=== PATIENT | male | born 1950 | race African-American/Black ===

== ENCOUNTER 2018-12-01 09:11 | Inpatient (IN) | payer MEDICARE, MEDICAID ==
[2018-12-01] MEDS ORDERED: levETIRAcetam 500 MG/100 ML PREMIX BAG ONE (09:23)
[2018-12-01] MEDS ORDERED: Lorazepam 2 MG/ML VIAL ONE (09:39)
[2018-12-01 10:06] LABS: #Basophils 0.1 thou/uL (0.0-0.2); #Eosinphils 0.2 thou/uL (0.0-0.7); #Lymphocytes 1.3 thou/uL (1.20-3.40); #Monocytes 0.3 thou/uL (0.11-0.59); #Neutrophils 3.9 thou/uL (1.40-6.50); %Basophils 0.9 % (0.0-1.0); %Eosinophils 3.5 % (0.0-10.0); %Monocytes 5.6 % (0.0-10.0); %Neutrophils 66.9 % (42.0-75.0); Hemoglobin 12.6 g/dL (14.0-18.0); Mean Corpuscular HGB CONC 31.8 g/dL (32.0-36.0); Mean Corpuscular Hemoglobin 28.4 pg (27.0-31.0); Mean Corpuscular Volume 89.1 fL (78.0-98.0); Mean Platelet Volume 7.4 fL (7.4-10.4); Platelet Count 169 thou/uL (130-400); Red Blood Cell (RBC) Count 4.42 mill/uL (4.70-6.10); White Blood Cell (WBC) Count 5.8 thou/uL (4.8-10.8)
[2018-12-01 10:12] LABS: INR-International Normal Ratio 1.1; PTT 28.7 SEC (22.9-36.1); Prothrombin Time 14.2 SEC (12.0-14.7)
[2018-12-01] MEDS ORDERED: Gadobenate Dimeglumine 529 MG/1 ML (20ML VIAL) ONE (10:16)
--- NOTE | 2018-12-01 10:20 | CT ---
CT BRAIN WITHOUT CONTRAST: HISTORY: Seizure. COMPARISON: 10/13/2018 FINDINGS: Changes of chronic small vessel ischemic disease in the periventricular white matter are again seen. The ventricular size is normal and the basilar cisterns are patent. No evidence of acute infarct, hem orrhage, midline shift or abnormal extraaxial fluid collections is noted. The bony calvarium is intac t. The visualized paranasal sinuses and mastoid air cells are well aerated. IMPRESSION: No CT evidence of acute intracranial process. POS: [facility]
--- NOTE | 2018-12-01 10:23 | RAD ---
PORTABLE CHEST: Date: 12/01/18 HISTORY: Seizures. COMPARISON: 10/13/18 study. FINDINGS: Heart size within normal limits. Mediastinal structures are unremarkable. There is some increased int erstitial change in the bases, probably on the basis of atelectasis. IMPRESSION: 1. Bibasilar atelectatic appearing lung change. 2. There is what appears to be some emphysematous lung change involving the right upper lobe. POS: [facility]
[2018-12-01 10:37] LABS: ALT (SGPT) 15 U/L (8-55); AST (SGOT) 21 U/L (5-34); Albumin 3.6 g/dL (3.4-4.8); Alkaline Phosphatase 55 U/L (40-110); Anion Gap 20 mmol/L (10-20); BUN (Urea Nitrogen) 10 mg/dL (8.4-25.7); Bilirubin, Total 0.3 mg/dL (0.2-1.2); CK (CPK) 126 U/L (30-200); Calc. Creatinine Clearance 0 mL/min (70-130); Calcium 8.3 mg/dL (7.8-10.44); Carbon Dioxide 16 mmol/L (23-31); Chloride 105 mmol/L (98-107); Estimated GFR-MDRD 69; Globulin 3.5 g/dL (2.4-3.5); Glucose 100 mg/dL (80-115); Magnesium 1.8 mg/dL (1.6-2.6); Potassium 3.5 mmol/L (3.5-5.1); Protein, Total 7.1 g/dL (5.8-8.1); Sodium 137 mmol/L (136-145)
[2018-12-01 10:38] LABS: Acetaminophen Less than 6.0 mcg/mL (10.0-30.0); Alcohol Less than 10 mg/dL (Less than 10); Salicylate Less than 8.0 mg/dL (15.0-30.0)
[2018-12-01 11:55] LABS: Bacteria/HPF None Seen HPF (None Seen); Bilirubin Negative (Negative); Blood, Urine Negative (Negative); Clarity Clear (Clear); Glucose, Urine (Dipstick) Normal (Negative); Leukocyte Negative Leu/uL (Negative); Nitrite Negative (Negative); Protein, Urine (Dipstick) 50 mg/dL (Neg-Trace); RBC/HPF 0-3 HPF (0-3); Squamous Epithelial 0-3 HPF (0-3); Urobilinogen Normal mg/dL (Less than 2); WBC/HPF 0-3 HPF (0-3)
[2018-12-01 11:58] LABS: Medtox Reader # READER 4
[2018-12-01 11:59] LABS: Amphetamine Not Detected (NotDetected); Barbiturates Screen Not Detected (NotDetected); Benzodiazepine Screen Detected (NotDetected); Cocaine Metabolite Screen Not Detected (NotDetected); Medtox Control Line Valid? VALID (VALID); Methadone Not Detected (NotDetected); Methamphetamine Not Detected (NotDetected); Opiate Screen Not Detected (NotDetected); Oxycodone Screen Not Detected (NotDetected); Phencyclidine (PCP) Not Detected (NotDetected); THC/Cannabinoid Screen Not Detected (NotDetected); Tricyclic Screen Not Detected (NotDetected)
[2018-12-01 14:25] LABS: Lactic Acid 3.2 mmol/L (0.5-2.2)
[2018-12-01] MEDS ORDERED: Acetaminophen 325 MG TAB PO PRN ×2 (14:51→15:42)
[2018-12-01] MEDS ORDERED: Ondansetron PF 4 MG/2 ML Vial IVP PRN ×2 (14:51→15:42)
[2018-12-01] MEDS ORDERED: Ondansetron ODT 4 MG TAB SL PRN (14:51)
[2018-12-01 15:23] VITALS: BMI 23.8
[2018-12-01] MEDS ORDERED: Ondansetron ODT 4 MG TAB PO PRN (15:42)
[2018-12-01] MEDS ORDERED: Acetaminophen 650 MG Suppository PR PRN (15:42)
[2018-12-01] MEDS ORDERED: Lorazepam 2 MG/ML VIAL SLOW IVP PRN (15:53)
[2018-12-01] MEDS: Sodium Chloride 0.9% 1,000 ML IV SCH (16:22)
[2018-12-01] MEDS ORDERED: hydrALAZINE 20 MG/ML VIAL SLOW IVP PRN (16:23)
--- NOTE | 2018-12-01 17:24 | HP ---
TIME OF ASSESSMENT: 1500 hours. PRIMARY CARE PHYSICIAN: Fer Vega. REASON FOR ADMISSION: Breakthrough seizures secondary to noncompliance. HISTORY OF PRESENT ILLNESS: Mr. Herndon is a 68-year-old gentleman with a known history of seizures, who has been on Keppra 1000 mg twice daily at baseline after undergoing increase in the dose following admission with recurrent multiple seizures late September 2018. He was seen by Dr. Bey at that time and was previously on 500 mg twice a day. More recently, according to the ED reports, the patient has been noncompliant with medications due to financial issues. The patient is very somnolent, therefore difficult to obtain much information, but patient states he has been compliant until the last few days. Unable to provide any more information besides that. He denies any complaints at this time. Per ED records, he was reported to have been given 2 mg of Ativan by EMS due to seizure. He was witnessed to have 2 seizures while en route to the hospital and had another seizure in the ER. He had another 2 mg of Ativan in the emergency department. He underwent a CT of the head, which showed no acute intracranial abnormalities. He also underwent a chest x-ray showing bibasilar atelectatic lung changes with changes that seem to be associated with emphysema involving the right upper lung. Urine drug screen test was done, which was unremarkable except for benzodiazepines. Laboratory studies were notable for an elevated lactic acid of 11.9 and a repeat was done at noon showing it had improved to 3.2. Full blood count was normal. Hemoglobin was 12.6. Electrolytes unremarkable. Creatinine 1.27, GFR 69 compared to previous level of 84. BUN 10. LFTs unremarkable and CK normal at 126. Urinalysis was done showing no evidence of UTI. REVIEW OF SYSTEMS: Unable to obtain due to the patient being somnolent from medications given. PAST MEDICAL HISTORY: Seizures. PAST SURGICAL HISTORY: Unable to obtain due to the patient being altered. SOCIAL HISTORY: The patient states he lives with his daughter. FAMILY HISTORY: Per patient, no family history of epilepsy. ALLERGIES: NO KNOWN DRUG ALLERGIES. CURRENT MEDICATIONS: Unable to verify as the patient is currently altered. PHYSICAL EXAMINATION: GENERAL: The patient appears somnolent, well developed, and in no acute distress. VITAL SIGNS: Temperature 100.5, pulse 77, respirations 16, O2 saturation 96% on room air, blood pressure 189/112. HEENT: Normocephalic, atraumatic. Pupils are equal, round, and reactive to light. Sclerae without icterus. Extraocular muscles intact. The patient without any nystagmus. Opens his eyes on command only, otherwise keeps his eyes closed. Oropharynx is clear. NECK: Supple. LUNGS: Clear to auscultation. No rales or rhonchi. CARDIAC: Regular rate and rhythm. ABDOMEN: Soft, nontender, nondistended. Normoactive bowel sounds present. EXTREMITIES: No lower leg swelling or edema. NEUROLOGIC: The patient is somnolent, but easily woken, able to follow commands. Normal hand tentering machine feeder strength bilaterally. Able to straight leg raise bilaterally. Alert and oriented to person and year. The patient thought he was in his daughter's apartment. SKIN: Without rash or jaundice. INVESTIGATIONS: As mentioned above in HPI. IMPRESSION AND PLAN: Mr. Herndon is a 68-year-old gentleman, who has a known history of seizures. He reports he has been noncompliant with medications as of recently due to financial issues. The patient endorses being noncompliant in the last couple of days. He was admitted in September 2018 with seizures, at which time, his Keppra was increased from 500 mg to 1000 mg twice daily. He has been given a 1000 mg of Keppra in the emergency department and we will continue this twice daily. Consultation has been placed in Neurology and an MRI of the brain has been requested. He remains somnolent due to Ativan given previously. The patient on seizure precautions and we will continue neuro checks. Urine drug screen unremarkable except for benzos which he was given en route to the hospital. The patient without any complaints at present. We will continue to monitor closely. Urinalysis done showing no evidence of urinary tract infection. He did have an elevated temperature, however, upon rechecking it was normal at 98.1. Chest x-ray unremarkable. Currently, no obvious signs of any underlying infection and lactic acid improved to 3.2 from 11.9. We will give hydralazine p.r.n. for elevated blood pressure. The patient appears to have a history of thyroid disorder. We will attempt to verify home medications and we will check a TSH level. At this time, unable to obtain information regarding code status or surrogate decision maker. Person to notify is his daughter, Ghazala Caba. The patient's case was discussed with Dr. Schmidt, who agrees with plan of care as described above. Job ID: [id number]
[2018-12-01] MEDS: levETIRAcetam In NaCl (Iso-Os) 1,000 MG in Premix Bag 1 BAG IVPB SCH (20:36)
[2018-12-01] MEDS: Famotidine/PF 20 mg/2ml Vial SLOW IVP SCH (20:48)
[2018-12-02 04:33] LABS: #Eosinphils 0.2 thou/uL (0.0-0.7); #Lymphocytes 1.6 thou/uL (1.20-3.40); #Monocytes 0.5 thou/uL (0.11-0.59); #Neutrophils 3.8 thou/uL (1.40-6.50); %Basophils 0.4 % (0.0-1.0); %Eosinophils 3.2 % (0.0-10.0); %Lymphocytes 26.2 % (21.0-51.0); %Monocytes 7.5 % (0.0-10.0); %Neutrophils 62.7 % (42.0-75.0); Hemoglobin 12.9 g/dL (14.0-18.0); Mean Corpuscular HGB CONC 31.3 g/dL (32.0-36.0); Mean Corpuscular Hemoglobin 27.9 pg (27.0-31.0); Mean Platelet Volume 8.2 fL (7.4-10.4); Platelet Count 170 thou/uL (130-400); RBC Distribution Width 12.2 % (11.5-14.5); Red Blood Cell (RBC) Count 4.62 mill/uL (4.70-6.10)
[2018-12-02 04:53] LABS: Anion Gap 13 mmol/L (10-20); BUN (Urea Nitrogen) 9 mg/dL (8.4-25.7); Calc. Creatinine Clearance 84 mL/min (70-130); Calcium 8.6 mg/dL (7.8-10.44); Carbon Dioxide 21 mmol/L (23-31); Chloride 106 mmol/L (98-107); Estimated GFR-MDRD Greater than 90; Glucose 79 mg/dL (80-115); Potassium 3.5 mmol/L (3.5-5.1); Sodium 136 mmol/L (136-145)
[2018-12-02] MEDS: Sodium Chloride 0.9% 1,000 ML IV SCH (06:15)
--- NOTE | 2018-12-02 08:30 | MRI ---
MRI Brain W WO Con: 12/01/2018 3:54 PM CLINICAL HISTORY: Seizure disorder. COMPARISON: Head CT earlier same day FINDINGS: Extra axial spaces: Normal in size and morphology for the patient's age. Acute infarction: None. Ventricular system: Normal in size and morphology for the patient's age. Basal cisterns: Normal. Cerebral parenchyma: Microvascular ischemic changes. Midline shift: None. Cerebellum: Normal. Brainstem: Normal. Paranasal sinuses:Clear Intraaxial Enhancement: None IMPRESSION: No acute intracranial abnormality. Chronic microvascular ischemic disease of the cerebral white matter.
[2018-12-02] MEDS ORDERED: FLU VACC TS2019-20(65YR UP)/PF 180 MCG/0.5 ML SYRINGE IM ONE (09:00)
[2018-12-02] MEDS: Famotidine/PF 20 mg/2ml Vial SLOW IVP SCH ×2 (10:06→20:38)
[2018-12-02] MEDS: levETIRAcetam In NaCl (Iso-Os) 1,000 MG in Premix Bag 1 BAG IVPB SCH ×2 (10:14→20:38)
[2018-12-02] MEDS ORDERED: Amlodipine 5 MG TAB PO SCH (12:00)
[2018-12-02] MEDS ORDERED: Lisinopril 5 MG TAB PO SCH (12:00)
--- NOTE | 2018-12-02 15:04 | PDOC.HOSPP ---
- Subjective Subjective: Seen and examined. Patient answering questions appropriately. Patient tells me he is hungry. Patient had bedside swallow evaluation by nursing staff and did not have any difficulties, advanced diet. Patient does state that he has missed doses of his antiepileptic drugs secondary to cost, consider changing to a lower -cost alternative such as Depakote per neurologist. - Objective Vital Signs & Weight: Vital Signs (12 hours) Temp Pulse Resp BP BP Pulse Ox 12/02/18 12:19 66 179/107 H 12/02/18 12:18 66 179/107 H 12/02/18 12:00 98.0 F 66 16 188/108 H 98 12/02/18 07:47 97.8 F 60 14 168/100 H 100 12/02/18 04:00 98.1 F 64 16 150/85 H 99 Weight Weight 180 lb 11.2 oz I&O: 12/01/18 12/02/18 12/03/18 06:59 06:59 06:59 Intake Total 909 395 Output Total 500 240 Balance 409 155 Result Diagrams: 12/02/18 04:06 12/02/18 04:06 Radiology Reviewed by me: Yes (MRI brain) Hospitalist ROS - Review of Systems All other systems reviewed; all pertinent +/- noted in HPI/Subj - Medication Medications: Active Medications Generic Name Dose Route Start Last Admin Trade Name Freq PRN Reason Stop Dose Admin Acetaminophen 650 mg 12/01/18 15:42 12/01/18 16:22 Tylenol [place] 650 mg Q4H PRN Administration Headache/Fever/Mild Pain (1-3) Famotidine 20 mg 12/01/18 21:00 12/02/18 10:06 Pepcid SLOW IVP 20 mg Q12HR CAMRON Administration Hydralazine HCl 10 mg 12/01/18 16:23 12/01/18 16:34 Apresoline SLOW IVP 10 mg Q4H PRN Administration SBP Greater Than 180 Levetiracetam 1,000 mg/ Device 100 mls @ 200 mls/hr 12/01/18 21:00 12/02/18 10:14 IVPB 100 mls BID CAMRON Administration - Exam General Appearance: NAD, awake alert Eye: anicteric sclera ENT: normocephalic atraumatic, moist mucosa Neck: supple, symmetric, no lymphadenopathy Heart: no murmur, no gallops, no rubs Respiratory: CTAB, no wheezes, no rales, no ronchi, normal chest expansion Gastrointestinal: soft, non-tender, non-distended, no guarding, no rigidity Extremities: no edema Skin: no lesions, no rashes Neurological: cranial nerve grossly intact, no focal deficits Musculoskeletal: generalized weakness Psychiatric: normal affect, A&O x 3 Hosp A/P (1) Medical non-compliance Code(s): Z91.19 - PATIENT'S NONCOMPLIANCE W OTH MEDICAL TREATMENT AND REGIMEN Status: Acute (2) Status epilepticus Code(s): G40.901 - EPILEPSY, UNSP, NOT INTRACTABLE, WITH STATUS EPILEPTICUS Status: Acute (3) Hypothyroidism Code(s): E03.9 - HYPOTHYROIDISM, UNSPECIFIED Status: Chronic (4) CRISTIAN (acute kidney injury) Code(s): N17.9 - ACUTE KIDNEY FAILURE, UNSPECIFIED Status: Resolved - Plan Plan: medical unit with telemetry/stroke unit neurology consultation, recommendations appreciated MRI brain negative for acute intracranial pathology, chronic white matter changes patient admits medical noncompliance with antiepileptic drug secondary to cost, consider changing to a low-cost alternative such as Depakote per neurology seizure precautions Ativan 2 mg PRN Seizure continue other home medications as able metabolic workup with renal insufficiency improved on IV fluids
[2018-12-02] MEDS ORDERED: Prevnar 13-Val Conj/PF 0.5 ML SYRINGE IM ONE (15:45)
--- NOTE | 2018-12-02 21:18 | PRG ---
DATE OF SERVICE: 12/02/2018 IMPRESSION: Mr. Herndon is readmitted after an apparent seizure. He was hospitalized here in September for the same issue. His Keppra was increased to 1000 twice a day. He has been noncompliant with the treatment. He came back in with a Keppra level of zero. He was given a 1000 mg loading dose. He has not had any further seizures since admission. The patient refused to accept the idea that he has seizures, chances are he will continue to be noncompliant. It seems like there is little we can do except consider adult protective services. Job ID: [id number]
[2018-12-03] MEDS: Levothyroxine Sodium 25 MCG TAB PO SCH (06:48)
[2018-12-03] MEDS: levETIRAcetam In NaCl (Iso-Os) 1,000 MG in Premix Bag 1 BAG IVPB SCH ×2 (09:07→21:13)
[2018-12-03] MEDS: Amlodipine 5 MG TAB PO SCH (09:08)
[2018-12-03] MEDS: Lisinopril 5 MG TAB PO SCH (09:08)
[2018-12-03] MEDS: Famotidine/PF 20 mg/2ml Vial SLOW IVP SCH ×2 (09:08→21:13)
--- NOTE | 2018-12-03 16:50 | PDOC.HOSPP ---
- Subjective Subjective: Seen and examined. I asked the patient today if he was taking his seizure pills prior to admission, patient now tells me that he doesn't need seizure pills and he doesn't believe he has this problem. I told the patient that he does have seizures and this is the second hospitalization in the past two months for seizure, he seems confused that this is his second hospitalization for this and does not recall last hospitalization. Neurology recommending consulting Adult Protective Services as the patient is a danger to himself and may not be safe to go home at this time. - Objective Vital Signs & Weight: Vital Signs (12 hours) Temp Pulse Pulse Pulse Resp BP BP 12/03/18 15:57 98.8 F 71 20 12/03/18 13:43 12/03/18 13:24 71 59 L 151/91 H 12/03/18 12:00 97.3 F L 61 16 12/03/18 09:08 65 151/93 H 12/03/18 08:00 97.4 F L 65 18 BP BP Pulse Ox 12/03/18 15:57 145/88 H 98 12/03/18 13:43 162/94 H 12/03/18 13:24 162/94 H 12/03/18 12:00 180/103 H 98 12/03/18 09:08 12/03/18 08:00 151/93 H 98 Weight Weight 180 lb 11.2 oz I&O: 12/02/18 12/03/18 12/04/18 06:59 06:59 06:59 Intake Total 909 395 Output Total 500 240 Balance 409 155 Result Diagrams: 12/02/18 04:06 12/02/18 04:06 Radiology Reviewed by me: Yes (CXR) Hospitalist ROS - Review of Systems All other systems reviewed; all pertinent +/- noted in HPI/Subj - Medication Medications: Active Medications Generic Name Dose Route Start Last Admin Trade Name Freq PRN Reason Stop Dose Admin Acetaminophen 650 mg 12/01/18 15:42 12/01/18 16:22 Tylenol [place] 650 mg Q4H PRN Administration Headache/Fever/Mild Pain (1-3) Amlodipine Besylate 2.5 mg 12/03/18 09:00 12/03/18 09:08 Norvasc PO 2.5 mg DAILY CAMRON Administration Famotidine 20 mg 12/01/18 21:00 12/03/18 09:08 Pepcid SLOW IVP 20 mg Q12HR CAMRON Administration Hydralazine HCl 10 mg 12/01/18 16:23 12/01/18 16:34 Apresoline SLOW IVP 10 mg Q4H PRN Administration SBP Greater Than 180 Levetiracetam 1,000 mg/ Device 100 mls @ 200 mls/hr 12/01/18 21:00 12/03/18 09:07 IVPB 100 mls BID CAMRON Administration Levothyroxine Sodium 25 mcg 12/03/18 06:00 12/03/18 06:48 Synthroid PO 25 mcg 0600 CAMRON Administration Lisinopril 5 mg 12/03/18 09:00 12/03/18 09:08 Zestril PO 5 mg DAILY CAMRON Administration - Exam General Appearance: NAD, awake alert Eye: anicteric sclera ENT: normocephalic atraumatic, moist mucosa Neck: supple, symmetric, no lymphadenopathy Heart: RRR, no murmur, no gallops Respiratory: CTAB, no wheezes, no rales, no ronchi Gastrointestinal: soft, non-tender, non-distended, normal bowel sounds, no guarding, no rigidity Extremities: no edema Skin: no lesions, no rashes Neurological: cranial nerve grossly intact, no focal deficits Musculoskeletal: normal tone, no muscle wasting Psychiatric: oriented to person, oriented to place, flat affect Hosp A/P (1) Medical non-compliance Code(s): Z91.19 - PATIENT'S NONCOMPLIANCE W OTH MEDICAL TREATMENT AND REGIMEN Status: Acute (2) Status epilepticus Code(s): G40.901 - EPILEPSY, UNSP, NOT INTRACTABLE, WITH STATUS EPILEPTICUS Status: Acute (3) Hypothyroidism Code(s): E03.9 - HYPOTHYROIDISM, UNSPECIFIED Status: Chronic (4) CRISTIAN (acute kidney injury) Code(s): N17.9 - ACUTE KIDNEY FAILURE, UNSPECIFIED Status: Resolved - Plan Plan: medical unit with telemetry/stroke unit neurology consultation, recommendations appreciated Consult to Adult Protective Services, patient a danger to self with continual denial of seizure disorder and recurrent admission for seizures secondary to medical non compliance Again this AM patient tells me he doesnt need seizure pills, in denial about having seizure disorder. Patient in denial about medical problems and refuses to listen to myself or neurology on the serious nature of his condition Query if patient can take care of himself alone MRI brain negative for acute intracranial pathology, chronic white matter changes IV Keppra Seizure precautions Ativan 2 mg PRN Seizure continue other home medications as able metabolic workup with renal insufficiency improved on IV fluids
[2018-12-04] MEDS: Levothyroxine Sodium 25 MCG TAB PO SCH (06:28)
[2018-12-04] MEDS: Lisinopril 5 MG TAB PO SCH (09:47)
[2018-12-04] MEDS: Amlodipine 5 MG TAB PO SCH (09:48)
[2018-12-04] MEDS: Famotidine/PF 20 mg/2ml Vial SLOW IVP SCH ×2 (09:48→21:30)
[2018-12-04] MEDS: levETIRAcetam In NaCl (Iso-Os) 1,000 MG in Premix Bag 1 BAG IVPB SCH ×2 (09:49→21:29)
--- NOTE | 2018-12-04 16:03 | PDOC.HOSPP ---
- Subjective Subjective: Seen and examined. Patient in good spirits. Eating and drinking well. No seizures overnight. Continues to improve on maximal medical therapy. Patient still has poor understanding into his clinical condition and occasionally states that he does not believe he has seizure disorder or need seizure medications. - Objective Vital Signs & Weight: Vital Signs (12 hours) Temp Pulse Pulse Resp BP BP BP 12/04/18 15:50 98.6 F 65 16 12/04/18 11:45 98.1 F 61 15 12/04/18 11:30 56 L 174/96 H 147/88 H 12/04/18 09:48 59 L 138/84 12/04/18 09:47 59 L 138/84 12/04/18 09:40 12/04/18 07:54 97.7 F 67 20 BP Pulse Ox 12/04/18 15:50 153/96 H 97 12/04/18 11:45 147/88 H 99 12/04/18 11:30 12/04/18 09:48 12/04/18 09:47 12/04/18 09:40 99 12/04/18 07:54 138/84 99 Weight Weight 180 lb 11.2 oz I&O: 12/03/18 12/04/18 12/05/18 06:59 06:59 06:59 Intake Total 395 480 Output Total 240 Balance 155 480 Result Diagrams: 12/02/18 04:06 12/02/18 04:06 Hospitalist ROS - Review of Systems All other systems reviewed; all pertinent +/- noted in HPI/Subj - Medication Medications: Active Medications Generic Name Dose Route Start Last Admin Trade Name Freq PRN Reason Stop Dose Admin Acetaminophen 650 mg 12/01/18 15:42 12/01/18 16:22 Tylenol [place] 650 mg Q4H PRN Administration Headache/Fever/Mild Pain (1-3) Amlodipine Besylate 2.5 mg 12/03/18 09:00 12/04/18 09:48 Norvasc PO 2.5 mg DAILY CAMRON Administration Famotidine 20 mg 12/01/18 21:00 12/04/18 09:48 Pepcid SLOW IVP 20 mg Q12HR CAMRON Administration Hydralazine HCl 10 mg 12/01/18 16:23 12/01/18 16:34 Apresoline SLOW IVP 10 mg Q4H PRN Administration SBP Greater Than 180 Levetiracetam 1,000 mg/ Device 100 mls @ 200 mls/hr 12/01/18 21:00 12/04/18 09:49 IVPB 100 mls BID CAMRON Administration Levothyroxine Sodium 25 mcg 12/03/18 06:00 12/04/18 06:28 Synthroid PO 25 mcg 0600 CAMRON Administration Lisinopril 5 mg 12/03/18 09:00 12/04/18 09:47 Zestril PO 5 mg DAILY CAMRON Administration - Exam General Appearance: NAD, awake alert Eye: anicteric sclera ENT: normocephalic atraumatic, moist mucosa Neck: supple, symmetric, no lymphadenopathy Heart: RRR, no murmur, normal peripheral pulses Respiratory: CTAB, no wheezes, no ronchi Gastrointestinal: soft, non-tender, normal bowel sounds, no guarding, no rigidity Extremities: no edema Skin: no lesions, no rashes Neurological: cranial nerve grossly intact, no focal deficits Musculoskeletal: no muscle wasting Psychiatric: normal affect, A&O x 3 Hosp A/P (1) Medical non-compliance Code(s): Z91.19 - PATIENT'S NONCOMPLIANCE W OTH MEDICAL TREATMENT AND REGIMEN Status: Acute (2) Status epilepticus Code(s): G40.901 - EPILEPSY, UNSP, NOT INTRACTABLE, WITH STATUS EPILEPTICUS Status: Acute (3) Hypothyroidism Code(s): E03.9 - HYPOTHYROIDISM, UNSPECIFIED Status: Chronic (4) CRISTIAN (acute kidney injury) Code(s): N17.9 - ACUTE KIDNEY FAILURE, UNSPECIFIED Status: Resolved - Plan Plan: medical unit with telemetry/stroke unit neurology consultation, recommendations appreciated Consult to Adult Protective Services, patient a danger to self with continual denial of seizure disorder and recurrent admission for seizures secondary to medical non compliance Again this AM patient tells me he doesnt need seizure pills, in denial about having seizure disorder. Patient in denial about medical problems and refuses to listen to myself or neurology on the serious nature of his condition Query if patient can take care of himself alone Patient drinks several beers per day Smokes cigarettes MRI brain negative for acute intracranial pathology, chronic white matter changes IV Keppra Seizure precautions Ativan 2 mg PRN Seizure continue other home medications as able metabolic workup with renal insufficiency improved on IV fluids
--- NOTE | 2018-12-05 03:05 | EKG ---
Test Reason : Blood Pressure : / mmHG Vent. Rate : 083 BPM Atrial Rate : 083 BPM P-R Int : 174 ms QRS Dur : 090 ms QT Int : 352 ms P-R-T Axes : 077 036 053 degrees QTc Int : 413 ms Normal sinus rhythm Possible Left atrial enlargement Nonspecific T wave abnormality Abnormal ECG Confirmed by RUSSELL HESTER D.O. ([id number]), sound editor CADY RIVERA ([id number]) on 12/05/2018 3:05:13 AM Referred By: Confirmed By:RUSSELL HESTER D.O.
[2018-12-05] MEDS: Levothyroxine Sodium 25 MCG TAB PO SCH (05:27)
[2018-12-05] MEDS ORDERED: levETIRAcetam 100 mg/ml Oral Solution PO SCH (09:00)
[2018-12-05] MEDS: levETIRAcetam 500 mg/5 ml Oral Solution PO SCH ×2 (09:44→21:35)
[2018-12-05] MEDS: Famotidine/PF 20 mg/2ml Vial SLOW IVP SCH ×2 (09:44→21:35)
[2018-12-05] MEDS: Amlodipine 5 MG TAB PO SCH (09:45)
[2018-12-05] MEDS: Lisinopril 5 MG TAB PO SCH (09:45)
--- NOTE | 2018-12-05 16:20 | PDOC.HOSPP ---
- Subjective Subjective: Seen and examined. Clinically improving. Answering questions appropriately. No seizures overnight. Changed Keppra from intravenous to oral liquid. Patient's family believes that he is having trouble with pills consistently. Case discussed with daughter over the phone, all questions answered in detail. - Objective Vital Signs & Weight: Vital Signs (12 hours) Temp Pulse Resp BP BP BP Pulse Ox 12/05/18 15:29 97.8 F 61 20 169/107 H 100 12/05/18 11:15 97.5 F L 60 20 144/92 H 99 12/05/18 09:45 59 L 140/94 H 12/05/18 09:40 97 12/05/18 07:10 97.6 F 61 16 123/96 H 97 Weight Weight 180 lb 11.2 oz I&O: 12/04/18 12/05/18 12/06/18 06:59 06:59 06:59 Intake Total 600 480 Balance 600 480 Result Diagrams: 12/02/18 04:06 12/02/18 04:06 Hospitalist ROS - Review of Systems All other systems reviewed; all pertinent +/- noted in HPI/Subj - Medication Medications: Active Medications Generic Name Dose Route Start Last Admin Trade Name Freq PRN Reason Stop Dose Admin Acetaminophen 650 mg 12/01/18 15:42 12/01/18 16:22 Tylenol [place] 650 mg Q4H PRN Administration Headache/Fever/Mild Pain (1-3) Amlodipine Besylate 2.5 mg 12/03/18 09:00 12/05/18 09:45 Norvasc PO 2.5 mg DAILY CAMRON Administration Famotidine 20 mg 12/01/18 21:00 12/05/18 09:44 Pepcid SLOW IVP 20 mg Q12HR CAMRON Administration Hydralazine HCl 10 mg 12/01/18 16:23 12/01/18 16:34 Apresoline SLOW IVP 10 mg Q4H PRN Administration SBP Greater Than 180 Levetiracetam 1,000 mg 12/05/18 09:00 12/05/18 09:44 Keppra Oral Solution PO 1,000 mg BID CAMRON Administration Levothyroxine Sodium 25 mcg 12/03/18 06:00 12/05/18 05:27 Synthroid PO 25 mcg 0600 CAMRON Administration Lisinopril 5 mg 12/03/18 09:00 12/05/18 09:45 Zestril PO 5 mg DAILY CAMRON Administration Sodium Chloride 10 ml 12/01/18 15:42 12/04/18 21:30 Flush - Normal Saline IVF 10 ml Q12H PRN Administration Saline Flush - Exam General Appearance: NAD, awake alert Eye: anicteric sclera ENT: normocephalic atraumatic, moist mucosa Neck: supple, symmetric, no lymphadenopathy Heart: RRR, no murmur, no gallops Respiratory: CTAB, no wheezes, no rales, no ronchi Gastrointestinal: soft, non-tender, no guarding, no rigidity Extremities: no edema Skin: no lesions, no rashes Neurological: cranial nerve grossly intact, no focal deficits Musculoskeletal: no muscle wasting Psychiatric: normal affect, A&O x 3 Hosp A/P (1) Medical non-compliance Code(s): Z91.19 - PATIENT'S NONCOMPLIANCE W OTH MEDICAL TREATMENT AND REGIMEN Status: Acute (2) Status epilepticus Code(s): G40.901 - EPILEPSY, UNSP, NOT INTRACTABLE, WITH STATUS EPILEPTICUS Status: Acute (3) Hypothyroidism Code(s): E03.9 - HYPOTHYROIDISM, UNSPECIFIED Status: Chronic (4) CRISTIAN (acute kidney injury) Code(s): N17.9 - ACUTE KIDNEY FAILURE, UNSPECIFIED Status: Resolved - Plan Plan: medical unit with telemetry/stroke unit neurology consultation, recommendations appreciated Speech therapy consultation, recommendations appreciated Modified barium sallow - reported "trouble swallowing keppra pill" Consult to Adult Protective Services, patient a danger to self with continual denial of seizure disorder and recurrent admission for seizures secondary to medical non compliance Again this AM patient tells me he doesnt need seizure pills, in denial about having seizure disorder. Patient in denial about medical problems and refuses to listen to myself or neurology on the serious nature of his condition Query if patient can take care of himself alone Patient drinks several beers per day Smokes cigarettes MRI brain negative for acute intracranial pathology, chronic white matter changes IV Keppra Seizure precautions Ativan 2 mg PRN Seizure continue other home medications as able metabolic workup with renal insufficiency improved on IV fluids
[2018-12-06] MEDS: Levothyroxine Sodium 25 MCG TAB PO SCH (08:06)
[2018-12-06] MEDS: levETIRAcetam 500 mg/5 ml Oral Solution PO SCH ×2 (09:24→21:09)
[2018-12-06] MEDS: Amlodipine 5 MG TAB PO SCH (09:25)
[2018-12-06] MEDS: Lisinopril 5 MG TAB PO SCH (09:26)
[2018-12-06] MEDS: Famotidine/PF 20 mg/2ml Vial SLOW IVP SCH ×2 (09:27→21:07)
--- NOTE | 2018-12-06 13:45 | PDOC.HOSPP ---
- Subjective Subjective: Seen and examined. Daughter at bedside, all questions answered in detail. Many questions were had about patient's ability to swallow and I recommended modified barium swallow. This will tell us if there is an anatomical reason for patients inability to swallow pills. Patient states that occasionally they do feel like they get caught in his throat. - Objective Vital Signs & Weight: Vital Signs (12 hours) Temp Pulse Resp BP BP BP Pulse Ox 12/06/18 11:11 97.6 F 66 16 149/89 H 98 12/06/18 09:26 63 143/94 H 12/06/18 09:25 63 143/94 H 12/06/18 07:42 97.9 F 63 20 143/94 H 98 12/06/18 03:47 97.4 F L 60 16 147/88 H 100 Weight Weight 180 lb 11.2 oz I&O: 12/05/18 12/06/18 12/07/18 06:59 06:59 06:59 Intake Total 600 720 Balance 600 720 Result Diagrams: 12/02/18 04:06 12/02/18 04:06 Hospitalist ROS - Review of Systems All other systems reviewed; all pertinent +/- noted in HPI/Subj - Medication Medications: Active Medications Generic Name Dose Route Start Last Admin Trade Name Freq PRN Reason Stop Dose Admin Acetaminophen 650 mg 12/01/18 15:42 12/01/18 16:22 Tylenol OH 650 mg Q4H PRN Administration Headache/Fever/Mild Pain (1-3) Amlodipine Besylate 2.5 mg 12/03/18 09:00 12/06/18 09:25 Norvasc PO 2.5 mg DAILY CAMRON Administration Famotidine 20 mg 12/01/18 21:00 12/06/18 09:27 Pepcid SLOW IVP 20 mg Q12HR CAMRON Administration Hydralazine HCl 10 mg 12/01/18 16:23 12/01/18 16:34 Apresoline SLOW IVP 10 mg Q4H PRN Administration SBP Greater Than 180 Levetiracetam 1,000 mg 12/05/18 09:00 12/06/18 09:24 Keppra Oral Solution PO 1,000 mg BID CAMRON Administration Levothyroxine Sodium 25 mcg 12/03/18 06:00 12/06/18 08:06 Synthroid PO 25 mcg 0600 CAMRON Administration Lisinopril 5 mg 10/11/19 09:00 12/06/18 09:26 Zestril PO 5 mg DAILY CAMRON Administration Sodium Chloride 10 ml 12/01/18 15:42 12/05/18 21:36 Flush - Normal Saline IVF 10 ml Q12H PRN Administration Saline Flush - Exam General Appearance: NAD, awake alert Eye: anicteric sclera ENT: normocephalic atraumatic, moist mucosa Neck: supple, symmetric, no lymphadenopathy Heart: RRR, no murmur, no gallops, no rubs Respiratory: CTAB, no wheezes, no rales, no ronchi, normal chest expansion Gastrointestinal: soft, non-tender, no guarding, no rigidity Extremities: no edema Skin: no lesions, no rashes Neurological: cranial nerve grossly intact, no focal deficits Musculoskeletal: no muscle wasting Psychiatric: normal affect, A&O x 3 Hosp A/P (1) Medical non-compliance Code(s): Z91.19 - PATIENT'S NONCOMPLIANCE W OTH MEDICAL TREATMENT AND REGIMEN Status: Acute (2) Status epilepticus Code(s): G40.901 - EPILEPSY, UNSP, NOT INTRACTABLE, WITH STATUS EPILEPTICUS Status: Acute (3) Hypothyroidism Code(s): E03.9 - HYPOTHYROIDISM, UNSPECIFIED Status: Chronic (4) CRISTIAN (acute kidney injury) Code(s): N17.9 - ACUTE KIDNEY FAILURE, UNSPECIFIED Status: Resolved - Plan Plan: medical unit with telemetry/stroke unit neurology consultation, recommendations appreciated Speech therapy consultation, recommendations appreciated Modified barium sallow - reported "trouble swallowing keppra pill" And sometimes it "gets stuck" Consult to Adult Protective Services, patient a danger to self with continual denial of seizure disorder and recurrent admission for seizures secondary to medical non compliance patient tells me he doesnt need seizure pills, in denial about having seizure disorder. Patient in denial about medical problems and refuses to listen to myself or neurology on the serious nature of his condition Query if patient can take care of himself alone Patient drinks several beers per day Smokes cigarettes MRI brain negative for acute intracranial pathology, chronic white matter changes IV Keppra Seizure precautions Ativan 2 mg PRN Seizure continue other home medications as able metabolic workup with renal insufficiency improved on IV fluids
--- NOTE | 2018-12-06 17:07 | RAD ---
MODIFIED BARIUM SWALLOW WITH SPEECH THERAPIST: History: Unspecified dysphagia, feeding difficulty. FINDINGS: Patient was evaluated in the upright and lateral position. Fluoroscopy time: 0.8 minutes Dose: 0.43 mGy*cm^2 No ariel penetration or aspiration. Patient swallowed the barium tablet without difficulty. Prominent anterior disc osteophyte complex, particularly at C5-6 resulting in some posterior indention of the cervical esophagus at this level. IMPRESSION: Findings as above. Please see speech therapy report for additional findings and recommendations. POS: SABAS
[2018-12-07] MEDS: Levothyroxine Sodium 25 MCG TAB PO SCH (06:44)
[2018-12-07] MEDS: Amlodipine 5 MG TAB PO SCH (09:04)
[2018-12-07] MEDS: levETIRAcetam 500 mg/5 ml Oral Solution PO SCH (09:04)
[2018-12-07] MEDS: Lisinopril 5 MG TAB PO SCH (09:04)
[2018-12-07] MEDS: Famotidine/PF 20 mg/2ml Vial SLOW IVP SCH (09:05)
[2018-12-07 15:38] VITALS: BP 156/96; TEMP 98.4
--- NOTE | 2018-12-08 03:16 | DIS ---
DATE OF ADMISSION: 12/01/2018 DATE OF DISCHARGE: 12/07/2018 REASON FOR HOSPITALIZATION: Seizure. SIGNIFICANT FINDINGS: The patient was found to be noncompliant with his seizure regimen. PROCEDURES PERFORMED AND TREATMENTS RENDERED: The patient was seen and evaluated by Neurology, please see full consultation notes and progress notes for details. The patient had all appropriate imaging including an MRI of the brain-please see full report for details-there is no acute intracranial process and the patient does have chronic white matter changes. The patient was restarted on his antiepileptic drug and no further seizures were noted over his hospitalization. CONDITION ON DISCHARGE: Stable. SPECIFIC INSTRUCTIONS FOR THE PATIENT/FAMILY: 1. The patient is recommended to take oral Keppra and if he is unable to take oral Keppra, he is to return to acute care hospital immediately. 2. The patient is recommended to continue to follow up with primary care physician in the next 5 to 7 days for further plan of care. 3. The patient is recommended to follow up with Neurology in the next 1 to 2 weeks. 4. The patient is recommended to abstain from alcohol as beer has been known to cause seizures. The patient is recommended to avoid illicit drugs and tobacco use. DISCHARGE MEDICATIONS: 1. Keppra 1000 mg liquid solution b.i.d. 2. Lisinopril 5 mg one tablet p.o. daily. 3. Amlodipine 5 mg one tablet p.o. daily. 4. Synthroid 25 mcg one tablet p.o. daily. HOSPITAL COURSE: Mr. Herndon is a very pleasant 68-year-old gentleman, who presented to [facility] on 12/01/2018 with seizure. The patient was admitted to the Neurology floor and was seen by the neurologist, please see full consultation notes and full radiographic imaging for all details. The patient had a CT scan of the brain that did not demonstrate any acute abnormality and the patient had a subsequent MRI of the brain-please see full report for details-there is no acute intracranial process and there are chronic white matter changes. Neurology stating that there has been several hospitalizations in the past several months for seizures and this is secondary to medical noncompliance. For this, Neurology and myself recommended consultation of Adult Protective Services and this was facilitated by Case Management. The patient has previously been established with Adult Protective Services in [place] and they do have case filed on him. The patient past several months, homeless on the streets of [place], and just recently his daughter has started to take over his care. The patient did describe to me episodes where he thought that he did not need antiepileptic drug and he did not want to take seizure medicines and he states "God's will is God's will." Over long discussions with myself and the neurologist, the patient was told explicitly several times that he does have a seizure condition and this is controlled when he takes his Keppra. The patient then states that maybe he has trouble swallowing pills and his daughter describes episodes of him the patient also stated that sometimes he thought that a pill would get stuck in his throat. I recommended a modified barium swallow-please see full report for details. There were no overt aspiration or overt abnormality seen on the modified barium swallow. The patient does have a posterior anterior disk osteophyte complex that is particularly at the C5-C6 level, but is resulting in some posterior indentation of the cervical esophagus at that level-please see full report for details. When I discussed this matter personally with the speech therapist, she did not state that this was any impedance to his swallowing ability. The patient was recommended a diet appropriately by Speech Therapy and he can even swallow pills if able. The patient's daughter did request that I send a liquid Keppra and I did send a liquid Keppra to see if in a liquid formula, he is more inclined to take this medication. The patient recommended safe for discharge by Neurology with close followup in the outpatient setting in the next 1 to 2 weeks. The patient is recommended to take oral Keppra or return to acute care hospital immediately. The patient recommended to abstain from any alcohol use and he is known to drink 4 to 5 beers in a day. I explicitly informed the patient and the patient's daughter that this can cause seizures and they will stop this completely. I have recommended that he stop any illicit drugs, which he has known to do in the past. I recommended that he stop smoking tobacco and they are resistant to this. The patient is recommended to follow up with primary care physician in the next 5 to 7 days for further care on all the patient's future matters. The patient is recommended to follow up with Neurology in the next 1 to 2 weeks. The patient is recommended to return to acute care hospital immediately if signs or symptoms return, worsen, or any other new symptoms occur. Greater than 35 minutes spent coordinating care and discharge process for this patient. Job ID: [id number]
== END 2018-12-07 15:47 | disposition home health service (06) | DRG 101 ==
LOC: ERS 09:11 → 2SE 14:44
PROVIDERS: ADMIT Family Medicine; ATTEND Family Medicine
DX: G40.901 Epilepsy, unspecified, not intractable, with status epilepticus (principal); N17.9 Acute kidney failure, unspecified; I10 Essential (primary) hypertension; E03.9 Hypothyroidism, unspecified; Z91.14 Patient's other noncompliance with medication regimen; Z59.0 Homelessness; F17.210 Nicotine dependence, cigarettes, uncomplicated
CPT/HCPCS: 36415; 70450; 70553; 71045; 74230; 80048; 80053; 80177; 80306; 80307; 81003; 81015; 82550; 83605; 83735; 84443; 84484; 85025; 85610; 85730; 90471; 90662; 90670; 93005; 96361; 96365; 96375; A9577; G0008; G0009; J0360; J1953; J2060; S0028

== ENCOUNTER 2019-01-25 06:22 | Outpatient (CLI) | payer MEDICARE, MEDICAID ==
[2019-01-26 14:12] LABS: #Eosinphils 0.3 thou/uL (0.0-0.7); #Lymphocytes 1.4 thou/uL (1.20-3.40); #Monocytes 0.3 thou/uL (0.11-0.59); %Basophils 0.6 % (0.0-1.0); %Eosinophils 5.2 % (0.0-10.0); %Lymphocytes 28.4 % (21.0-51.0); %Monocytes 6.3 % (0.0-10.0); %Neutrophils 59.5 % (42.0-75.0); Hemoglobin 12.8 g/dL (14.0-18.0); Mean Corpuscular Hemoglobin 27.8 pg (27.0-31.0); Mean Corpuscular Volume 89.5 fL (78.0-98.0); Mean Platelet Volume 7.4 fL (7.4-10.4); Platelet Count 203 thou/uL (130-400); Red Blood Cell (RBC) Count 4.59 mill/uL (4.70-6.10); White Blood Cell (WBC) Count 5.1 thou/uL (4.8-10.8)
[2019-01-26 14:33] LABS: Anion Gap 9 mmol/L (10-20); BUN (Urea Nitrogen) 9 mg/dL (8.4-25.7); Calc. Creatinine Clearance 0 mL/min (70-130); Calcium 9.1 mg/dL (7.8-10.44); Carbon Dioxide 28 mmol/L (23-31); Chloride 104 mmol/L (98-107); Estimated GFR-MDRD 61; Glucose 91 mg/dL (80-115); Potassium 3.4 mmol/L (3.5-5.1); Sodium 138 mmol/L (136-145)
--- NOTE | 2019-01-27 21:33 | EKG ---
Test Reason : Blood Pressure : / mmHG Vent. Rate : 083 BPM Atrial Rate : 083 BPM P-R Int : 176 ms QRS Dur : 092 ms QT Int : 360 ms P-R-T Axes : 078 060 042 degrees QTc Int : 423 ms Normal sinus rhythm Normal ECG When compared with ECG of 01-DEC-2018 10:22, T wave inversion no longer evident in Anterior leads Confirmed by Luan ECHOLS ([id number]) on 01/27/2019 9:33:00 PM Referred By: NAOMI Confirmed By:Luan ECHOLS
== END 2019-01-25 06:23 | disposition home or self-care (01) ==
LOC: LABBT 06:22
PROVIDERS: ATTEND Surgery
DX: Z01.818 Encounter for other preprocedural examination (principal); K40.90 Unilateral inguinal hernia, without obstruction or gangrene, not specified as recurrent
CPT/HCPCS: 80048; 85025; 93005; 93010

== ENCOUNTER 2019-01-28 09:31 | Day surgery (SDC) | payer MEDICARE, MEDICAID ==
[2019-01-26 13:14] VITALS: BMI 22.7
[2019-01-28] MEDS ORDERED: Dexamethasone 20 MG/5 ML VIAL ONE (10:59)
[2019-01-28] MEDS ORDERED: Ketorolac Tromethamine 30 MG/ML VIAL ONE (10:59)
[2019-01-28] MEDS ORDERED: ePHEDrine/0.9% NaCl/PF SYRINGE 50 mg/10 ml ONE (10:59)
[2019-01-28] MEDS ORDERED: Ondansetron PF 4 MG/2 ML Vial ONE (10:59)
[2019-01-28] MEDS ORDERED: PROPOFOL 200 MG/20 ML VIAL ONE (10:59)
[2019-01-28] MEDS ORDERED: Lidocaine 1% PF 5 ML VIAL ONE (10:59)
[2019-01-28] MEDS ORDERED: Bupivacaine 0.25% HCL 30 ML VIAL ONE ×2 (11:12→14:43)
[2019-01-28] MEDS ORDERED: Fentanyl 100 MCG/2 ML VIAL ONE (11:15)
[2019-01-28] MEDS ORDERED: Levofloxacin 500 mg/D5W 100 ml Premix Bag ONE (11:28)
[2019-01-28] MEDS ORDERED: Clindamycin/D5W 900 mg/50 ml Premix Bag ONE ×2 (11:28→11:39)
--- NOTE | 2019-02-02 22:53 | PDOC.OP ---
Operative Note - Operative Note Operative Note: DATE OF SERVICE: 01/28/2019 PREOPERATIVE DIAGNOSIS: Left inguinal hernia. POSTOPERATIVE DIAGNOSIS: Indirect left inguinal hernia. PROCEDURE: Repair of left inguinal hernia with mesh. HISTORY: 68-year-old man with a large symptomatic inguinal hernia who desires operative repair. DESCRIPTION OF PROCEDURE: After informed consent was obtained and appropriate preoperative antibiotics were administered, the patient was taken to the operating room, placed in the supine position and general endotracheal anesthesia was administered. The inguinal area was prepped and draped in the standard sterile fashion and local anesthesia was infused to the skin and subcutaneous tissues overlying the inguinal canal. An oblique skin incision was made in the direction of the skin crease. Dissection was carried down to the external oblique aponeurosis which was carefully incised in the direction of its fibers through the enlarged external ring. The aponeurosis was mobilized off the underlying structures. The ilioinguinal nerve was clearly identified. This was coursing directly over the hernia sac and was tethered to it, and was divided as it would have required extensive mobilization and traction to preserve. The inguinal cord was mobilized at the level of the pubic tubercle. The cremasteric muscles were divided and the cord contents and floor of the canal were carefully examined. A large direct hernia was identified. The inguinal contents were carefully examined to ensure that no indirect hernia sac was present. A small cord lipoma was identified and this was resected and discarded. However no hernia sac protruding through the internal ring was present. An extra-large Perfix plug was obtained and then placed into the direct defect. This was tacked down to the internal oblique in a couple of locations. The patch was then secured to the pubic tubercle inferiorly, to the shelving edge of the inguinal ligament laterally, and secured at intervals to the internal oblique medially. A keyhole slit was created and placed around the inguinal cord contents and secured, and the ends secured to each other. The operative site was irrigated and hemostasis verified. Local anesthesia was infused into the muscles of the internal oblique medially. An On-Q pain pump was placed into the inguinal canal, exiting laterally and superiorly. This was secured to the skin with skin glue. The external oblique aponeurosis was then closed with 2-0 Vicryl suture, taking care not to pull up any of the underlying cord contents or On-Q tubing into the closure, and additional local anesthesia infused into the inguinal canal. The remainder of the local was infused into the subcutaneous tissues circumferentially and to the skin. Tera's fascia was reapproximated with 3-0 Monocryl sutures and the skin was closed with 4-0 subcuticular Monocryl sutures. Dermabond dressings were placed and the patient was extubated and taken to the recovery room in good condition. Estimated blood loss was minimal. There were no complications. SPECIMENS: None
== END 2019-01-28 16:05 | disposition home or self-care (01) ==
LOC: SDC 09:31
PROVIDERS: ATTEND Surgery
PROC: 0YU60JZ Supplement Left Inguinal Region with Synthetic Substitute, Open Approach (ICD-10-PCS; principal; 2019-01-28)
DX: K40.90 Unilateral inguinal hernia, without obstruction or gangrene, not specified as recurrent (principal); D17.6 Benign lipomatous neoplasm of spermatic cord; I10 Essential (primary) hypertension; J44.9 Chronic obstructive pulmonary disease, unspecified; G40.909 Epilepsy, unspecified, not intractable, without status epilepticus; E03.9 Hypothyroidism, unspecified; F17.200 Nicotine dependence, unspecified, uncomplicated; Z79.899 Other long term (current) drug therapy; Z88.0 Allergy status to penicillin
CPT/HCPCS: 49505; A4306; C1781; J0131; J0690; J1100; J1885; J1956; J2001; J2405; J2704; J3010; J3490; S0020

== ENCOUNTER 2019-06-20 21:41 | Observation (INO) | payer MEDICARE, MEDICAID ==
[2019-06-20] MEDS ORDERED: Lorazepam 2 MG/ML VIAL ONE ×2 (21:55→22:09)
[2019-06-20] MEDS ORDERED: Ondansetron PF 4 MG/2 ML Vial ONE (21:55)
[2019-06-20 22:03] LABS: #Basophils 0.1 thou/uL (0.0-0.2); #Eosinphils 0.3 thou/uL (0.0-0.7); #Monocytes 0.6 thou/uL (0.11-0.59); #Neutrophils 2.7 thou/uL (1.40-6.50); %Basophils 1.3 % (0.0-1.0); %Eosinophils 5.6 % (0.0-10.0); %Lymphocytes 34.6 % (21.0-51.0); %Monocytes 10.7 % (0.0-10.0); %Neutrophils 47.8 % (42.0-75.0); Hemoglobin 13.9 g/dL (14.0-18.0); Mean Corpuscular HGB CONC 31.2 g/dL (32.0-36.0); Mean Corpuscular Hemoglobin 28.1 pg (27.0-31.0); Mean Platelet Volume 7.6 fL (7.4-10.4); Platelet Count 224 thou/uL (130-400); RBC Distribution Width 12.7 % (11.5-14.5); Red Blood Cell (RBC) Count 4.95 mill/uL (4.70-6.10); White Blood Cell (WBC) Count 5.7 thou/uL (4.8-10.8)
[2019-06-20 22:22] LABS: Bacteria/HPF None Seen HPF (None Seen); Bilirubin Negative (Negative); Blood, Urine Negative (Negative); Clarity Clear (Clear); Glucose, Urine (Dipstick) Normal (Negative); Leukocyte Negative Leu/uL (Negative); Nitrite Negative (Negative); Protein, Urine (Dipstick) 30 mg/dL (Neg-Trace); RBC/HPF 0-3 HPF (0-3); Squamous Epithelial None Seen HPF (0-3); Urobilinogen Normal mg/dL (Less than 2); WBC/HPF 0-3 HPF (0-3)
[2019-06-20 22:24] LABS: ALT (SGPT) 70 U/L (8-55); AST (SGOT) 124 U/L (5-34); Albumin 4.3 g/dL (3.4-4.8); Alkaline Phosphatase 87 U/L (40-110); Anion Gap 17 mmol/L (10-20); BUN (Urea Nitrogen) 8 mg/dL (8.4-25.7); Bilirubin, Total 0.4 mg/dL (0.2-1.2); Calc. Creatinine Clearance 0 mL/min (70-130); Calcium 9.6 mg/dL (7.8-10.44); Carbon Dioxide 23 mmol/L (23-31); Chloride 103 mmol/L (98-107); Estimated GFR-MDRD 70; Globulin 4.7 g/dL (2.4-3.5); Glucose 122 mg/dL (80-115); Potassium 3.7 mmol/L (3.5-5.1); Sodium 139 mmol/L (136-145)
--- NOTE | 2019-06-21 00:14 | HP ---
PRIMARY CARE PHYSICIAN: [facility]. REASON FOR ADMISSION: Seizure and postictal confusion. HISTORY OF PRESENT ILLNESS: 68-year-old male, who lives at home with his daughter and the patient was brought to ER by her because he suddenly became altered at home and subsequently, he stopped answering. As per the patient's daughter, he had seizure-like activity at home and subsequently, the patient was in postictal phase. In triage, the patient was not following any commands and the patient was not talking. In the emergency room, the patient was in postictal phase as well as he had another 2 seizures in the emergency room, which required 2 doses of lorazepam. The patient was also given IV fluids. After seizure, he remained in postictal phase. In the emergency room, CT brain was negative. When I saw this patient at that time, the patient was waking up and he pulled out his IV line and he was able to stand up by himself and he was able to use restroom and subsequently, he only required little assistance to go back to his [facility] bed. Routine blood test showed lactic acidosis and abnormal LFTs. The patient is being admitted overnight for observation for recurrent seizure and postictal phase. REVIEW OF SYSTEMS: All review of systems tried to review with the patient, but not reliable due to his level of alertness. PAST MEDICAL HISTORY: Seizure disorder, hypertension, hypothyroidism. PAST SURGICAL HISTORY: Hernia repair. PAST PSYCHIATRIC HISTORY: Reviewed and negative. SOCIAL HISTORY: The patient drinks about 5 beers on everyday basis. He also smokes cigarettes about half pack per day. He denies any other illicit drug abuse. FAMILY HISTORY: No strong family history of premature coronary artery disease, stroke, or cancer. No family history of epilepsy. ALLERGIES: NO KNOWN DRUG ALLERGIES. CURRENT HOME MEDICATIONS: The patient's family member did not bring any medication, but based on our report, he was on the following medications; 1. Keppra 1000 mg twice daily. 2. Levothyroxine 25 mcg p.o. daily. 3. Amlodipine 5 mg p.o. daily. 4. Lisinopril 5 mg p.o. daily. EMERGENCY ROOM COURSE: The patient was given 2 doses of lorazepam, IV fluids. PHYSICAL EXAMINATION: VITAL SIGNS: On arrival, blood pressure 166/96, pulse 80, respiratory rate 16, temperature 98.2, saturation 96% on room air. Weight 65.3 kg. GENERAL: The patient is currently alert, arousable, but confused. No obvious acute distress. HEENT: Head is normocephalic and atraumatic. Eyes; pupils round, reactive to light. Extraocular muscle intact. No nystagmus. ENT, oropharynx within normal limits. Moist mucous membranes. No tongue bite. NECK: Supple. No JVD. No meningeal signs of irritation. LUNGS: Clear to auscultation without any rhonchi or rales. No wheeze. No rhonchi. No rales. NECK: Supple. No JVD. No meningeal signs of irritation. CARDIAC: S1 and S2 regular. No murmur. No gallop. No rub. ABDOMEN: Soft, bowel sounds present, nontender, nondistended. No organomegaly. No mass. No peritoneal sign. EXTREMITIES: No edema. Good distal pulsation. NEUROLOGIC: Grossly nonfocal examination. The patient moves all 4 limbs, but detailed neurological examination not possible because of poor cognitive status at this point. SIGNIFICANT LABS: EKG is showing normal sinus rhythm without any acute ischemic changes. CT brain, based on my review, no acute intracranial process. CBC; WBC 5.7, hemoglobin 13.9, platelets 224. BMP; sodium 139, potassium 3.7, chloride 103, carbon dioxide 23, BUN 8, creatinine 1.25, glucose 122, calcium 9.6. Lactic acid 6.5. LFTs; AST 124, ALT 70, alkaline phosphatase 87, albumin 4.3, troponin 0.016. Urinalysis unremarkable. ASSESSMENT AND PLAN: 1. Recurrent seizure. The patient is given Ativan and his seizure has been resolved. We will continue with Keppra 1000 mg p.o. b.i.d. Current seizure episode probably may be suspected for alcohol withdrawal versus underlying his epilepsy. Underlying medication noncompliance is main culprit for his recurrent seizure. We will check Keppra level tomorrow morning. 2. Lactic acidosis likely due to seizure. We will continue with 5% dextrose with NS and we will repeat lactic acid level tomorrow. 3. Abnormal liver function tests. The patient has AST more than ALT, likely related with his alcohol abuse. We will continue with folic acid, vitamin B12, and multivitamin tonight. 4. Hypertension. We will continue with amlodipine 5 mg p.o. daily, lisinopril 5 mg p.o. daily. 5. Hypothyroidism. Continue Synthroid 25 mcg p.o. daily. 6. Deep venous thrombosis prophylaxis. SCD boots. No Lovenox because we are expecting discharge in 24 hours. 7. GI prophylaxis. Pepcid 20 mg p.o. b.i.d. 8. Alcohol abuse. We will continue folic acid, vitamin B12, and thiamine therapy. 9. Tobacco abuse disorder. Smoking cessation counseling will be given. We will offer nicotine patch if needed. DISPOSITION PLAN: Based on clinical course, likely within 24 hours. Plan of care discussed with the patient in detail. Job ID: [id number]
[2019-06-21] MEDS ORDERED: Sodium Chloride 0.9% 1,000 ML IV SCH (00:36)
[2019-06-21] MEDS ORDERED: Ondansetron ODT 4 MG TAB SL PRN (00:36)
[2019-06-21] MEDS ORDERED: Ondansetron PF 4 MG/2 ML Vial IVP PRN ×2 (00:36→01:29)
[2019-06-21 01:13] LABS: Lactic Acid 0.9 mmol/L (0.5-2.2)
[2019-06-21 01:21] LABS: Troponin I Less than 0.010 ng/mL (< 0.028)
[2019-06-21] MEDS ORDERED: Senokot S 8.6-50 MG TAB PO PRN (01:29)
[2019-06-21] MEDS ORDERED: Lorazepam 2 MG/ML VIAL SLOW IVP PRN (01:29)
[2019-06-21] MEDS ORDERED: Dextrose 5 %-0.45 % NaCl 1,000 ML IV SCH (01:29)
[2019-06-21] MEDS ORDERED: Ondansetron ODT 4 MG TAB PO PRN (01:29)
[2019-06-21] MEDS ORDERED: Guaifenesin DM 100-10/5 ML UDCUP PO PRN (01:29)
[2019-06-21] MEDS ORDERED: Multivit, Adult Inj 10 ML VIAL IV SCH (01:29)
[2019-06-21] MEDS ORDERED: Acetaminophen 325 MG TAB PO PRN (01:29)
[2019-06-21] MEDS ORDERED: Zolpidem Tartrate 5 MG TAB PO PRN (01:29)
[2019-06-21] MEDS ORDERED: Loperamide HCl 2 MG CAP PO PRN (01:29)
[2019-06-21] MEDS ORDERED: Nicotine 21 MG PATCH TD PRN (01:29)
[2019-06-21] MEDS ORDERED: Bisacodyl 10 MG SUPP PR PRN (01:29)
[2019-06-21] MEDS ORDERED: Calcium Carbonate 500 MG ChewTAB PO PRN (01:29)
[2019-06-21 01:43] VITALS: BMI 23.2
[2019-06-21] MEDS ORDERED: Multivitamins, Adult 10 ML in Sodium Chloride 0.9% 500 ML IV SCH ×2 (01:45→02:00)
[2019-06-21 04:05] LABS: #Eosinphils 0.2 thou/uL (0.0-0.7); #Lymphocytes 1.3 thou/uL (1.20-3.40); #Monocytes 0.4 thou/uL (0.11-0.59); #Neutrophils 3.2 thou/uL (1.40-6.50); %Basophils 0.6 % (0.0-1.0); %Eosinophils 3.9 % (0.0-10.0); %Lymphocytes 25.7 % (21.0-51.0); %Monocytes 7.8 % (0.0-10.0); %Neutrophils 62.1 % (42.0-75.0); Mean Corpuscular HGB CONC 31.4 g/dL (32.0-36.0); Mean Corpuscular Hemoglobin 28.4 pg (27.0-31.0); Mean Corpuscular Volume 90.6 fL (78.0-98.0); Mean Platelet Volume 7.6 fL (7.4-10.4); Platelet Count 173 thou/uL (130-400); RBC Distribution Width 12.7 % (11.5-14.5); Red Blood Cell (RBC) Count 4.57 mill/uL (4.70-6.10); White Blood Cell (WBC) Count 5.2 thou/uL (4.8-10.8)
[2019-06-21 04:35] LABS: Troponin I 0.021 ng/mL (< 0.028)
[2019-06-21 05:26] LABS: Lactic Acid 1.1 mmol/L (0.5-2.2)
[2019-06-21 05:28] LABS: ALT (SGPT) 58 U/L (8-55); AST (SGOT) 100 U/L (5-34); Albumin 3.7 g/dL (3.4-4.8); Alkaline Phosphatase 76 U/L (40-110); Anion Gap 13 mmol/L (10-20); BUN (Urea Nitrogen) 9 mg/dL (8.4-25.7); Bilirubin, Total 0.3 mg/dL (0.2-1.2); Calc. Creatinine Clearance 79 mL/min (70-130); Calcium 8.5 mg/dL (7.8-10.44); Carbon Dioxide 25 mmol/L (23-31); Chloride 104 mmol/L (98-107); Estimated GFR-MDRD 87; Globulin 3.8 g/dL (2.4-3.5); Glucose 92 mg/dL (80-115); Potassium 3.8 mmol/L (3.5-5.1); Protein, Total 7.5 g/dL (5.8-8.1); Sodium 138 mmol/L (136-145)
[2019-06-21] MEDS ORDERED: Levothyroxine Sodium 25 MCG TAB PO SCH (06:00)
--- NOTE | 2019-06-21 06:51 | CT ---
CT HEAD WITHOUT CONTRAST: INDICATION: Mental status change. COMPARISON: Comparison is made to head CT of 12/01/2018. FINDINGS: The ventricles have normal size and position. Moderate chronic ischemic white matter changes are aga in noted, stable from prior exam. No evidence of acute infarct. No mass, edema, or hemorrhage. Sin uses are clear. IMPRESSION: Stable findings. No acute process. POS: AGW
[2019-06-21] MEDS ORDERED: Famotidine/PF 20 mg/2ml Vial SLOW IVP SCH (09:00)
[2019-06-21] MEDS ORDERED: levETIRAcetam 500 MG TAB PO SCH (09:00)
[2019-06-21] MEDS ORDERED: Amlodipine 5 MG TAB PO SCH (09:00)
[2019-06-21] MEDS ORDERED: Famotidine 20 MG TAB PO SCH (09:00)
[2019-06-21] MEDS ORDERED: Lisinopril 5 MG TAB PO SCH (09:00)
[2019-06-21 11:44] VITALS: BP 128/86; TEMP 98.7
--- NOTE | 2019-06-21 12:48 | DIS ---
DATE OF ADMISSION: 06/20/2019 DATE OF DISCHARGE: 06/21/2019 DISCHARGE DIAGNOSES: 1. Recurrent seizures secondary to noncompliance and alcohol abuse. 2. Alcohol abuse. 3. Tobacco abuse. 4. Hypertension, stable. 5. Hypothyroidism, stable. 6. Transaminitis secondary to alcohol abuse. CONSULTATIONS: None. PERTINENT LABORATORY AND X-RAY FINDINGS: AST ranged between 100 to 124, ALT ranged between 58 to 70. Lactic acid level ranged between 0.9 to 1.1. CBC within normal limits. Keppra level 16.9. CT of the brain without contrast dated 06/20/2019, showed no acute intracranial process. HOSPITAL COURSE: The patient was observed on the Stroke Unit after initially presenting with recurrent seizures and postictal confusion. The patient with chronic seizure disorder on chronic Keppra 1000 mg b.i.d. The patient also with daily alcohol use in addition to Keppra. The patient was initially managed for recurrent seizures with IV Ativan with resolution of seizure activity with benzodiazepine therapy. Metabolic screening was essentially unremarkable except for transaminitis with a normal Keppra level noted. CT imaging of the brain was unremarkable. The patient's presentation likely due to ongoing alcohol abuse in the context of seizure disorder, interfering with his Keppra therapy. The patient was cautioned and encouraged to discontinue alcohol use after discharge. I have examined the patient at the time of discharge and discussed followup instructions. The patient verbalized understanding and in agreement and ready for discharge on 06/21/2019. DISCHARGE MEDICATIONS: 1. Keppra 1000 mg p.o. b.i.d. 2. Levothyroxine 25 mcg p.o. daily. 3. Amlodipine 5 mg p.o. daily. 4. Zestril 5 mg p.o. daily. FOLLOWUP: The patient may follow up with Dr. Montez Mathis at [facility] in [place], [place]. CONDITION ON DISCHARGE: Fair. ACTIVITY: Ad-guillermo. DIET: Heart healthy. CODE STATUS: Full. DISPOSITION: Home on 06/21/2019. Job ID: [id number]
--- NOTE | 2019-06-22 13:26 | EKG ---
Test Reason : Blood Pressure : / mmHG Vent. Rate : 082 BPM Atrial Rate : 082 BPM P-R Int : 152 ms QRS Dur : 090 ms QT Int : 378 ms P-R-T Axes : 075 042 066 degrees QTc Int : 441 ms Normal sinus rhythm Normal ECG Confirmed by ISAIAS COWAN ([id number]), editor book CADY RIVERA ([id number]) on 06/22/2019 1:25:46 PM Referred By: Confirmed By:ISAIAS COWAN
== END 2019-06-21 14:20 | disposition home or self-care (01) ==
LOC: ERS 21:41 → 2SE 23:30
PROVIDERS: ADMIT Internal Medicine; ATTEND Internal Medicine
DX: G40.909 Epilepsy, unspecified, not intractable, without status epilepticus (principal); F10.10 Alcohol abuse, uncomplicated; F17.210 Nicotine dependence, cigarettes, uncomplicated; I10 Essential (primary) hypertension; E03.9 Hypothyroidism, unspecified; E87.2 Acidosis; R74.0 Nonspecific elevation of levels of transaminase and lactic acid dehydrogenase [LDH]; Z79.899 Other long term (current) drug therapy; Z88.0 Allergy status to penicillin; Z91.14 Patient's other noncompliance with medication regimen
CPT/HCPCS: 51701; 70450; 80053 ×2; 80177; 83605 ×2; 83735; 84484 ×3; 85025 ×2; 93005; 96361 ×2; 96365; 96366; 96375; 97139 ×4; 99285; G0378 ×2; 36415; 81003; 81015; 96374; J2060; J2405; J7030

== ENCOUNTER 2020-03-21 10:00 | Observation (INO) | payer MEDICARE, MEDICAID ==
[2020-03-21] MEDS ORDERED: levETIRAcetam 500 MG/100 ML PREMIX BAG ONE (10:04)
[2020-03-21 10:31] LABS: #Basophils 0.1 thou/uL (0.0-0.2); #Eosinphils 0.3 thou/uL (0.0-0.7); #Monocytes 0.7 thou/uL (0.11-0.59); #Neutrophils 2.2 thou/uL (1.40-6.50); %Basophils 1.1 % (0.0-1.0); %Eosinophils 5.1 % (0.0-10.0); %Lymphocytes 39.2 % (21.0-51.0); %Monocytes 12.7 % (0.0-10.0); Mean Corpuscular HGB CONC 31.1 g/dL (32.0-36.0); Mean Corpuscular Hemoglobin 28.5 pg (27.0-31.0); Mean Corpuscular Volume 91.6 fL (78.0-98.0); Mean Platelet Volume 7.6 fL (7.4-10.4); Platelet Count 206 thou/uL (130-400); RBC Distribution Width 12.3 % (11.5-14.5); Red Blood Cell (RBC) Count 4.91 mill/uL (4.70-6.10); White Blood Cell (WBC) Count 5.1 thou/uL (4.8-10.8)
[2020-03-21 10:45] LABS: ALT (SGPT) 70 U/L (8-55); AST (SGOT) 106 U/L (5-34); Alkaline Phosphatase 85 U/L (40-110); Anion Gap 26 mmol/L (10-20); BUN (Urea Nitrogen) 12 mg/dL (8.4-25.7); Bilirubin, Total 0.3 mg/dL (0.2-1.2); Calc. Creatinine Clearance 0 mL/min (70-130); Calcium 9.1 mg/dL (7.8-10.44); Carbon Dioxide 13 mmol/L (23-31); Chloride 103 mmol/L (98-107); Glucose 109 mg/dL (80-115); Sodium 138 mmol/L (136-145)
[2020-03-21 11:08] LABS: Bacteria/HPF None Seen HPF (None Seen); Bilirubin Negative (Negative); Blood, Urine Negative (Negative); Clarity Clear (Clear); Glucose, Urine (Dipstick) Normal (Negative); Ketone, Urine Negative (Negative); Leukocyte Negative Leu/uL (Negative); Nitrite Negative (Negative); Protein, Urine (Dipstick) 50 mg/dL (Neg-Trace); RBC/HPF 0-3 HPF (0-3); Specific Gravity, Urine 1.016 (1.002-1.036); Squamous Epithelial None Seen HPF (0-3); Urobilinogen Normal mg/dL (Less than 2); WBC/HPF 0-3 HPF (0-3)
[2020-03-21 11:52] LABS: Acetaminophen Less than 6.0 mcg/mL (10.0-30.0); Alcohol Less than 10 mg/dL (Less than 10); Salicylate Less than 8.0 mg/dL (15.0-30.0)
[2020-03-21 13:18] LABS: Amphetamine Not Detected (NotDetected); Barbiturates Screen Not Detected (NotDetected); Benzodiazepine Screen Not Detected (NotDetected); Cocaine Metabolite Screen Not Detected (NotDetected); Medtox Control Line Valid? VALID (VALID); Medtox Reader # READER 4; Methadone Not Detected (NotDetected); Methamphetamine Not Detected (NotDetected); Opiate Screen Not Detected (NotDetected); Oxycodone Screen Not Detected (NotDetected); Phencyclidine (PCP) Not Detected (NotDetected); THC/Cannabinoid Screen Detected (NotDetected); Tricyclic Screen Not Detected (NotDetected)
[2020-03-21 14:42] LABS: Lactic Acid 1.2 mmol/L (0.5-2.2)
[2020-03-21] MEDS ORDERED: Ondansetron PF 4 MG/2 ML Vial IVP PRN ×2 (15:24→15:30)
[2020-03-21] MEDS ORDERED: Ondansetron ODT 4 MG TAB PO PRN (15:24)
[2020-03-21] MEDS ORDERED: Labetalol HCl 100 MG/20 ML VIAL SLOW IVP PRN (15:24)
[2020-03-21] MEDS ORDERED: Acetaminophen 325 MG TAB PO PRN ×2 (15:24→15:30)
[2020-03-21] MEDS ORDERED: Lorazepam 2 MG/ML VIAL SLOW IVP PRN (15:24)
[2020-03-21] MEDS ORDERED: Acetaminophen 650 MG Suppository PR PRN (15:24)
[2020-03-21] MEDS ORDERED: Guaifenesin DM 100-10/5 ML UDCUP PO PRN (15:24)
[2020-03-21] MEDS ORDERED: Senokot S 8.6-50 MG TAB PO PRN (15:24)
[2020-03-21 15:26] VITALS: BMI 26.9
[2020-03-21] MEDS ORDERED: Ondansetron ODT 4 MG TAB SL PRN (15:30)
[2020-03-21] MEDS ORDERED: Diazepam 5 MG TAB PO PRN (15:31)
[2020-03-21] MEDS ORDERED: Thiamine HCl 200 MG/2 ML VIAL IM SCH (15:45)
[2020-03-21] MEDS: 1/2 NS w/KCL 20 mEq 1,000 ML IV SCH (17:18)
[2020-03-21] MEDS: Famotidine/PF 20 mg/2ml Vial SLOW IVP SCH (20:52)
[2020-03-21] MEDS: levETIRAcetam in NS 1,000 MG in Premix Bag 1 BAG IVPB SCH (20:53)
[2020-03-21 23:32] LABS: SARS-CoV-2 PCR by NAA Not Detected (NotDetected)
[2020-03-22] MEDS: Potassium Chloride 20 MEQ in Sodium Chloride 0.45% 1,000 ML IV SCH ×2 (03:16→03:31)
[2020-03-22] MEDS: 1/2 NS w/KCL 20 mEq 1,000 ML IV SCH (03:32)
[2020-03-22 05:37] LABS: #Eosinphils 0.2 thou/uL (0.0-0.7); #Lymphocytes 1.9 thou/uL (1.20-3.40); #Monocytes 0.5 thou/uL (0.11-0.59); #Neutrophils 2.5 thou/uL (1.40-6.50); %Basophils 0.9 % (0.0-1.0); %Eosinophils 3.6 % (0.0-10.0); %Lymphocytes 36.3 % (21.0-51.0); %Monocytes 9.9 % (0.0-10.0); %Neutrophils 49.3 % (42.0-75.0); Hemoglobin 13.4 g/dL (14.0-18.0); Mean Corpuscular HGB CONC 31.6 g/dL (32.0-36.0); Mean Corpuscular Hemoglobin 28.1 pg (27.0-31.0); Mean Platelet Volume 7.4 fL (7.4-10.4); Platelet Count 205 thou/uL (130-400); RBC Distribution Width 12.4 % (11.5-14.5); Red Blood Cell (RBC) Count 4.77 mill/uL (4.70-6.10); White Blood Cell (WBC) Count 5.1 thou/uL (4.8-10.8)
[2020-03-22 05:57] LABS: Anion Gap 13 mmol/L (10-20); BUN (Urea Nitrogen) 10 mg/dL (8.4-25.7); Calc. Creatinine Clearance 106 mL/min (70-130); Calcium 8.7 mg/dL (7.8-10.44); Carbon Dioxide 24 mmol/L (23-31); Chloride 102 mmol/L (98-107); Glucose 89 mg/dL (80-115); Sodium 135 mmol/L (136-145)
[2020-03-22] MEDS ORDERED: Levothyroxine Sodium 25 MCG TAB PO SCH (06:00)
[2020-03-22] MEDS ORDERED: Amlodipine 5 MG TAB PO SCH (09:00)
[2020-03-22] MEDS: Famotidine/PF 20 mg/2ml Vial SLOW IVP SCH ×2 (09:16→20:20)
[2020-03-22] MEDS: Enoxaparin Sodium 40 MG/0.4 ML SYRINGE SC SCH (09:16)
[2020-03-22] MEDS: Diazepam 5 MG TAB PO PRN (09:16)
[2020-03-22] MEDS: Multivitamin W/ Minerals 1 TAB PO SCH (09:17)
[2020-03-22] MEDS: Lisinopril 20 MG TAB PO SCH (09:17)
[2020-03-22] MEDS: Magnesium Oxide 400 MG TAB PO SCH (09:17)
[2020-03-22] MEDS: Folic Acid 1 MG TAB PO SCH (09:17)
[2020-03-22] MEDS: Thiamine 100 MG TAB PO SCH (09:18)
[2020-03-22] MEDS: levETIRAcetam in NS 1,000 MG in Premix Bag 1 BAG IVPB SCH ×2 (09:18→20:21)
[2020-03-22 11:44] LABS: ALT (SGPT) 58 U/L (8-55); AST (SGOT) 76 U/L (5-34); Albumin 3.6 g/dL (3.4-4.8); Alkaline Phosphatase 65 U/L (40-110); Bilirubin, Direct 0.3 mg/dL (0.1-0.3); Bilirubin, Total 0.5 mg/dL (0.2-1.2)
[2020-03-22] MEDS ORDERED: Lorazepam 2 MG/ML VIAL SLOW IVP SCH (12:30)
[2020-03-22] MEDS: levETIRAcetam 500 MG TAB PO SCH (20:20)
[2020-03-23] MEDS: Diazepam 5 MG TAB PO PRN (00:48)
[2020-03-23] MEDS ORDERED: Levothyroxine Sodium 25 MCG TAB PO SCH (06:00)
[2020-03-23] MEDS: Enoxaparin Sodium 40 MG/0.4 ML SYRINGE SC SCH (08:34)
[2020-03-23] MEDS: Magnesium Oxide 400 MG TAB PO SCH ×2 (08:34→10:59)
[2020-03-23] MEDS: Lisinopril 20 MG TAB PO SCH ×2 (08:34→10:59)
[2020-03-23] MEDS: levETIRAcetam in NS 1,000 MG in Premix Bag 1 BAG IVPB SCH (08:34)
[2020-03-23] MEDS: levETIRAcetam 500 MG TAB PO SCH ×2 (08:34→10:58)
[2020-03-23] MEDS: Amlodipine 10 MG TAB PO SCH ×2 (08:35→10:58)
[2020-03-23] MEDS: Thiamine 100 MG TAB PO SCH ×2 (08:35→10:59)
[2020-03-23] MEDS: Multivitamin W/ Minerals 1 TAB PO SCH ×2 (08:35→10:59)
[2020-03-23] MEDS: Folic Acid 1 MG TAB PO SCH ×2 (08:35→10:58)
[2020-03-23] MEDS: Famotidine/PF 20 mg/2ml Vial SLOW IVP SCH ×2 (08:35→08:58)
[2020-03-23 17:24] VITALS: BP 139/93; TEMP 98.3
[2020-03-23] MEDS ORDERED: Famotidine 20 MG TAB PO SCH (21:00)
== END 2020-03-23 18:47 | disposition home or self-care (01) ==
LOC: ERS 10:00 → 3SE 12:24 → 2NO 03-22 18:00
PROVIDERS: ADMIT Emergency Medicine; ATTEND Internal Medicine
DX: G40.409 Other generalized epilepsy and epileptic syndromes, not intractable, without status epilepticus (principal); G93.41 Metabolic encephalopathy; F03.90 Unspecified dementia, unspecified severity, without behavioral disturbance, psychotic disturbance, mood disturbance, and anxiety; I10 Essential (primary) hypertension; E03.9 Hypothyroidism, unspecified; F31.9 Bipolar disorder, unspecified; F17.210 Nicotine dependence, cigarettes, uncomplicated; F10.20 Alcohol dependence, uncomplicated; Z91.14 Patient's other noncompliance with medication regimen; Z79.899 Other long term (current) drug therapy; Z88.0 Allergy status to penicillin; Z20.822 Contact with and (suspected) exposure to COVID-19; Y90.0 Blood alcohol level of less than 20 mg/100 ml
CPT/HCPCS: 51701; 70450; 71045; 80048; 80053; 80076; 80306; 80307; 82010; 83605; 85025 ×2; 87086; 93005; 95712; 95819; 95957; 96365; 97116; 97139 ×3; 97530 ×2; 97535; 99285; U0003; U0005; 36415; 81003; 81015; 87635; 96372; G0378; J1650; J1953; J2060; J3411; J3475; J3480; J3490; S0028

== ENCOUNTER 2020-03-24 11:02 | Emergency (ER) | payer MEDICARE, MEDICAID ==
[2020-03-24 12:19] LABS: #Eosinphils 0.1 thou/uL (0.0-0.7); #Lymphocytes 0.8 thou/uL (1.20-3.40); #Monocytes 0.7 thou/uL (0.11-0.59); #Neutrophils 3.5 thou/uL (1.40-6.50); %Basophils 0.6 % (0.0-1.0); %Eosinophils 2.5 % (0.0-10.0); %Lymphocytes 15.7 % (21.0-51.0); %Monocytes 13.6 % (0.0-10.0); %Neutrophils 67.7 % (42.0-75.0); Hemoglobin 14.1 g/dL (14.0-18.0); Mean Corpuscular HGB CONC 33.1 g/dL (32.0-36.0); Mean Corpuscular Hemoglobin 29.4 pg (27.0-31.0); Mean Corpuscular Volume 88.9 fL (78.0-98.0); Mean Platelet Volume 7.5 fL (7.4-10.4); Platelet Count 215 thou/uL (130-400); RBC Distribution Width 12.3 % (11.5-14.5); White Blood Cell (WBC) Count 5.1 thou/uL (4.8-10.8)
[2020-03-24 12:45] LABS: ALT (SGPT) 69 U/L (8-55); AST (SGOT) 101 U/L (5-34); Alkaline Phosphatase 65 U/L (40-110); Anion Gap 15 mmol/L (10-20); BUN (Urea Nitrogen) 23 mg/dL (8.4-25.7); Bilirubin, Total 0.6 mg/dL (0.2-1.2); Calc. Creatinine Clearance 0 mL/min (70-130); Calcium 9.7 mg/dL (7.8-10.44); Carbon Dioxide 27 mmol/L (23-31); Chloride 100 mmol/L (98-107); Globulin 4.9 g/dL (2.4-3.5); Glucose 95 mg/dL (80-115); Potassium 4.5 mmol/L (3.5-5.1); Protein, Total 8.9 g/dL (5.8-8.1); Sodium 137 mmol/L (136-145)
[2020-03-24 13:54] LABS: Bacteria/HPF None Seen HPF (None Seen); Bilirubin 1+ (Negative); Blood, Urine Negative (Negative); Clarity Turbid (Clear); Glucose, Urine (Dipstick) Normal (Negative); Ketone, Urine 20 mg/dL (Negative); Leukocyte Negative Leu/uL (Negative); Nitrite Negative (Negative); Protein, Urine (Dipstick) 200 mg/dL (Neg-Trace); RBC/HPF 0-3 HPF (0-3); Specific Gravity, Urine 1.035 (1.002-1.036); Squamous Epithelial 0-3 HPF (0-3)
[2020-03-24 14:10] LABS: Unclassified Crystals None Seen HPF (None Seen)
== END 2020-03-24 15:57 | disposition home or self-care (01) ==
LOC: ERS 11:02
DX: R56.9 Unspecified convulsions (principal); E03.9 Hypothyroidism, unspecified; I10 Essential (primary) hypertension; F17.210 Nicotine dependence, cigarettes, uncomplicated; Z79.899 Other long term (current) drug therapy
CPT/HCPCS: 36415; 70450; 71045; 80053; 81003; 81015; 83605; 85025; 93005; 94760

== ENCOUNTER 2020-07-17 01:34 | Emergency (ER) | payer MEDICARE, MEDICAID ==
[2020-07-17] MEDS ORDERED: Lorazepam 2 MG/ML VIAL ONE (02:01)
[2020-07-17] MEDS ORDERED: Haloperidol Lactate 5 MG/ML VIAL ONE (02:27)
[2020-07-17 02:39] LABS: #Lymphocytes 1.6 thou/uL (1.20-3.40); #Monocytes 0.6 thou/uL (0.11-0.59); #Neutrophils 8.1 thou/uL (1.40-6.50); %Basophils 0.1 % (0.0-1.0); %Eosinophils 0.3 % (0.0-10.0); %Lymphocytes 15.7 % (21.0-51.0); %Monocytes 5.4 % (0.0-10.0); %Neutrophils 78.5 % (42.0-75.0); Hemoglobin 13.7 g/dL (14.0-18.0); Mean Corpuscular HGB CONC 33.6 g/dL (32.0-36.0); Mean Corpuscular Hemoglobin 29.5 pg (27.0-31.0); Mean Corpuscular Volume 87.9 fL (78.0-98.0); Mean Platelet Volume 7.3 fL (7.4-10.4); Platelet Count 252 thou/uL (130-400); RBC Distribution Width 12.5 % (11.5-14.5); Red Blood Cell (RBC) Count 4.65 mill/uL (4.70-6.10); White Blood Cell (WBC) Count 10.3 thou/uL (4.8-10.8)
[2020-07-17 02:57] LABS: Bacteria/HPF None Seen HPF (None Seen); Bilirubin Negative (Negative); Blood, Urine 1+ (Negative); Clarity Clear (Clear); Glucose, Urine (Dipstick) Normal (Negative); Ketone, Urine 10 mg/dL (Negative); Leukocyte Negative Leu/uL (Negative); Nitrite Negative (Negative); Protein, Urine (Dipstick) 70 mg/dL (Neg-Trace); RBC/HPF 0-3 HPF (0-3); Specific Gravity, Urine 1.026 (1.002-1.036); Squamous Epithelial 0-3 HPF (0-3); Urobilinogen Normal mg/dL (Less than 2); pH, Urine 5.5 (5.0-9.0)
[2020-07-17 02:58] LABS: AST (SGOT) 119 U/L (5-34); Albumin 4.2 g/dL (3.4-4.8); Alkaline Phosphatase 66 U/L (40-110); Anion Gap 16 mmol/L (10-20); BUN (Urea Nitrogen) 20 mg/dL (8.4-25.7); Bilirubin, Total 0.6 mg/dL (0.2-1.2); Calc. Creatinine Clearance 0 mL/min (70-130); Carbon Dioxide 24 mmol/L (23-31); Chloride 102 mmol/L (98-107); Glucose 120 mg/dL (80-115); Protein, Total 9.2 g/dL (5.8-8.1); Sodium 139 mmol/L (136-145)
[2020-07-17 02:59] LABS: ALT (SGPT) 56 U/L (8-55); Acetaminophen Less than 6.0 mcg/mL (10.0-30.0); Alcohol Less than 10 mg/dL (Less than 10); Salicylate Less than 8.0 mg/dL (15.0-30.0)
[2020-07-17 03:00] LABS: Potassium 2.9 mmol/L (3.5-5.1)
[2020-07-17] MEDS ORDERED: Potassium Chloride 20 MEQ TAB ONE (03:03)
[2020-07-17 03:13] LABS: Amphetamine Not Detected (NotDetected); Barbiturates Screen Not Detected (NotDetected); Benzodiazepine Screen Not Detected (NotDetected); Cocaine Metabolite Screen Not Detected (NotDetected); Medtox Control Line Valid? VALID (VALID); Medtox Reader # READER 4; Methadone Not Detected (NotDetected); Methamphetamine Not Detected (NotDetected); Opiate Screen Not Detected (NotDetected); Oxycodone Screen Not Detected (NotDetected); Phencyclidine (PCP) Not Detected (NotDetected); THC/Cannabinoid Screen Detected (NotDetected); Tricyclic Screen Not Detected (NotDetected)
[2020-07-17] MEDS ORDERED: NS 0.9% w/ 40 MEQ KCL 1,000 ML IV SCH (03:30)
== END 2020-07-17 05:19 | disposition home or self-care (01) ==
LOC: ERS 01:34
DX: F03.90 Unspecified dementia, unspecified severity, without behavioral disturbance, psychotic disturbance, mood disturbance, and anxiety (principal); E87.6 Hypokalemia; E03.9 Hypothyroidism, unspecified; I10 Essential (primary) hypertension; F17.210 Nicotine dependence, cigarettes, uncomplicated
CPT/HCPCS: 36415; 80053; 80306; 80307; 81003; 81015; 83735; 85025; 93005; 94760; 96365; 96366; 96375; J1630; J2060; J3480

== ENCOUNTER 2020-11-12 00:11 | Emergency (ER) | payer MEDICARE, MEDICAID, OTHER ==
[2020-11-12 01:18] LABS: #Basophils 0.1 thou/uL (0.0-0.2); #Eosinphils 0.3 thou/uL (0.0-0.7); #Lymphocytes 2.5 thou/uL (1.20-3.40); #Monocytes 0.5 thou/uL (0.11-0.59); #Neutrophils 3.6 thou/uL (1.40-6.50); %Basophils 1.3 % (0.0-1.0); %Eosinophils 4.9 % (0.0-10.0); %Lymphocytes 35.1 % (21.0-51.0); %Monocytes 7.3 % (0.0-10.0); %Neutrophils 51.4 % (42.0-75.0); Hemoglobin 13.4 g/dL (14.0-18.0); Mean Corpuscular Hemoglobin 29.1 pg (27.0-31.0); Mean Corpuscular Volume 88.2 fL (78.0-98.0); Mean Platelet Volume 7.3 fL (7.4-10.4); Platelet Count 226 thou/uL (130-400); RBC Distribution Width 12.5 % (11.5-14.5); Red Blood Cell (RBC) Count 4.59 mill/uL (4.70-6.10)
[2020-11-12 01:48] LABS: ALT (SGPT) 39 U/L (8-55); AST (SGOT) 52 U/L (5-34); Albumin 3.7 g/dL (3.4-4.8); Alkaline Phosphatase 58 U/L (40-110); Anion Gap 14 mmol/L (10-20); BUN (Urea Nitrogen) 16 mg/dL (8.4-25.7); Bilirubin, Total 0.3 mg/dL (0.2-1.2); Calc. Creatinine Clearance 0 mL/min (70-130); Calcium 9.3 mg/dL (7.8-10.44); Carbon Dioxide 21 mmol/L (23-31); Chloride 104 mmol/L (98-107); Globulin 4.4 g/dL (2.4-3.5); Glucose 82 mg/dL (80-115); Potassium 4.1 mmol/L (3.5-5.1); Protein, Total 8.1 g/dL (5.8-8.1); Sodium 135 mmol/L (136-145)
[2020-11-12 02:12] LABS: Bilirubin Negative (Negative); Blood, Urine Negative (Negative); Clarity Clear (Clear); Glucose, Urine (Dipstick) Normal (Negative); Ketone, Urine Negative (Negative); Leukocyte Negative Leu/uL (Negative); Nitrite Negative (Negative); Protein, Urine (Dipstick) Negative (Neg-Trace); Specific Gravity, Urine 1.011 (1.002-1.036); Urobilinogen Normal mg/dL (Less than 2); pH, Urine 5.5 (5.0-9.0)
== END 2020-11-12 02:54 | disposition home or self-care (01) ==
LOC: ERS 00:11
DX: F03.90 Unspecified dementia, unspecified severity, without behavioral disturbance, psychotic disturbance, mood disturbance, and anxiety (principal); E03.9 Hypothyroidism, unspecified; I10 Essential (primary) hypertension; R56.9 Unspecified convulsions; F17.210 Nicotine dependence, cigarettes, uncomplicated; Z79.899 Other long term (current) drug therapy
CPT/HCPCS: 80053; 80177; 81003; 84484; 85025; 93005

== ENCOUNTER 2020-11-13 10:07 | Emergency (ER) | payer MEDICARE, MEDICAID, OTHER ==
[2020-11-13 12:17] LABS: #Eosinphils 0.2 thou/uL (0.0-0.7); #Monocytes 0.4 thou/uL (0.11-0.59); #Neutrophils 4.1 thou/uL (1.40-6.50); %Basophils 0.5 % (0.0-1.0); %Eosinophils 2.7 % (0.0-10.0); %Lymphocytes 17.4 % (21.0-51.0); %Monocytes 6.7 % (0.0-10.0); %Neutrophils 72.8 % (42.0-75.0); Mean Corpuscular Hemoglobin 28.3 pg (27.0-31.0); Mean Corpuscular Volume 88.2 fL (78.0-98.0); Mean Platelet Volume 7.6 fL (7.4-10.4); Platelet Count 224 thou/uL (130-400); RBC Distribution Width 12.7 % (11.5-14.5); Red Blood Cell (RBC) Count 4.96 mill/uL (4.70-6.10); White Blood Cell (WBC) Count 5.6 thou/uL (4.8-10.8)
[2020-11-13 12:40] LABS: ALT (SGPT) 44 U/L (8-55); AST (SGOT) 52 U/L (5-34); Alkaline Phosphatase 69 U/L (40-110); Anion Gap 12 mmol/L (10-20); BUN (Urea Nitrogen) 24 mg/dL (8.4-25.7); Bilirubin, Total 0.3 mg/dL (0.2-1.2); Calc. Creatinine Clearance 0 mL/min (70-130); Calcium 9.6 mg/dL (7.8-10.44); Carbon Dioxide 23 mmol/L (23-31); Chloride 109 mmol/L (98-107); Globulin 4.7 g/dL (2.4-3.5); Glucose 102 mg/dL (80-115); Potassium 4.1 mmol/L (3.5-5.1); Protein, Total 8.7 g/dL (5.8-8.1); Sodium 140 mmol/L (136-145)
== END 2020-11-13 15:41 | disposition home or self-care (01) ==
LOC: ERS 10:07
DX: R41.0 Disorientation, unspecified (principal); E03.9 Hypothyroidism, unspecified; I10 Essential (primary) hypertension; F17.210 Nicotine dependence, cigarettes, uncomplicated
CPT/HCPCS: 71045; 80053; 85025; 93005

== ENCOUNTER 2020-11-30 08:24 | Inpatient (IN) | payer MEDICARE, OTHER ==
[2020-11-30 09:22] LABS: #Lymphocytes 1.3 thou/uL (1.20-3.40); #Monocytes 0.8 thou/uL (0.11-0.59); #Neutrophils 9.3 thou/uL (1.40-6.50); %Basophils 0.3 % (0.0-1.0); %Eosinophils 0.1 % (0.0-10.0); %Lymphocytes 11.2 % (21.0-51.0); %Monocytes 6.9 % (0.0-10.0); %Neutrophils 81.5 % (42.0-75.0); Hemoglobin 13.2 g/dL (14.0-18.0); Mean Corpuscular HGB CONC 30.2 g/dL (32.0-36.0); Mean Corpuscular Hemoglobin 27.2 pg (27.0-31.0); Mean Corpuscular Volume 89.9 fL (78.0-98.0); Mean Platelet Volume 7.7 fL (7.4-10.4); Platelet Count 226 thou/uL (130-400); RBC Distribution Width 12.9 % (11.5-14.5); Red Blood Cell (RBC) Count 4.87 mill/uL (4.70-6.10); White Blood Cell (WBC) Count 11.4 thou/uL (4.8-10.8)
[2020-11-30 09:26] LABS: INR-International Normal Ratio 1.1; PTT 32.1 sec (22.9-36.1); Prothrombin Time 14.1 sec (12.0-14.7)
[2020-11-30 09:37] LABS: ALT (SGPT) 36 U/L (8-55); AST (SGOT) 116 U/L (5-34); Acetaminophen Less than 6.0 mcg/mL (10.0-30.0); Albumin 3.7 g/dL (3.4-4.8); Alcohol Less than 10 mg/dL (Less than 10); Alkaline Phosphatase 56 U/L (40-110); Anion Gap 16 mmol/L (10-20); BUN (Urea Nitrogen) 22 mg/dL (8.4-25.7); Bilirubin, Total 0.4 mg/dL (0.2-1.2); Calc. Creatinine Clearance 0 mL/min (70-130); Calcium 9.4 mg/dL (7.8-10.44); Carbon Dioxide 23 mmol/L (23-31); Chloride 105 mmol/L (98-107); Glucose 93 mg/dL (80-115); Potassium 3.8 mmol/L (3.5-5.1); Protein, Total 7.7 g/dL (5.8-8.1); Salicylate Less than 8.0 mg/dL (15.0-30.0); Sodium 140 mmol/L (136-145)
[2020-11-30] MEDS ORDERED: Aspirin 300 MG Suppository ONE (10:22)
[2020-11-30 11:30] LABS: CKMB 91.2 ng/mL (0-6.6)
[2020-11-30] MEDS ORDERED: Iopamidol-370 76% 500 ML 1 ML ONE (11:58)
[2020-11-30] MEDS: Sodium Chloride 0.9% 1,000 ML IV SCH (14:43)
[2020-11-30 15:01] VITALS: BMI 22.0
[2020-11-30] MEDS: Famotidine 20 MG TAB PO SCH (21:44)
[2020-12-01] MEDS: Sodium Chloride 0.9% 1,000 ML IV SCH ×4 (00:10→17:48)
[2020-12-01 05:50] LABS: #Eosinphils 0.1 thou/uL (0.0-0.7); #Lymphocytes 1.3 thou/uL (1.20-3.40); #Monocytes 0.6 thou/uL (0.11-0.59); #Neutrophils 7.9 thou/uL (1.40-6.50); %Basophils 0.1 % (0.0-1.0); %Eosinophils 0.5 % (0.0-10.0); %Lymphocytes 12.8 % (21.0-51.0); %Monocytes 6.4 % (0.0-10.0); %Neutrophils 80.2 % (42.0-75.0); Mean Corpuscular HGB CONC 31.8 g/dL (32.0-36.0); Mean Corpuscular Hemoglobin 27.9 pg (27.0-31.0); Mean Corpuscular Volume 87.8 fL (78.0-98.0); Mean Platelet Volume 7.7 fL (7.4-10.4); Platelet Count 218 thou/uL (130-400); RBC Distribution Width 12.7 % (11.5-14.5); Red Blood Cell (RBC) Count 4.64 mill/uL (4.70-6.10); White Blood Cell (WBC) Count 9.9 thou/uL (4.8-10.8)
[2020-12-01 06:04] LABS: ALT (SGPT) 52 U/L (8-55); AST (SGOT) 182 U/L (5-34); Albumin 3.4 g/dL (3.4-4.8); Alkaline Phosphatase 52 U/L (40-110); Anion Gap 14 mmol/L (10-20); BUN (Urea Nitrogen) 18 mg/dL (8.4-25.7); Bilirubin, Total 0.5 mg/dL (0.2-1.2); Calc. Creatinine Clearance 77 mL/min (70-130); Calcium 9.2 mg/dL (7.8-10.44); Carbon Dioxide 23 mmol/L (23-31); Chloride 108 mmol/L (98-107); Globulin 3.9 g/dL (2.4-3.5); Glucose 78 mg/dL (80-115); Potassium 3.5 mmol/L (3.5-5.1); Protein, Total 7.3 g/dL (5.8-8.1); Sodium 141 mmol/L (136-145)
[2020-12-01 06:16] LABS: CK (CPK) 5079 U/L (30-200)
[2020-12-01] MEDS: Famotidine 20 MG TAB PO SCH ×3 (08:50→21:40)
[2020-12-01] MEDS ORDERED: FLU VACC QS2021-22(65YR UP)/PF 240 MCG/0.7 ML SYRINGE IM ONE (09:00)
[2020-12-01] MEDS: Enoxaparin Sodium 30 MG/0.3 ML SYRINGE SC SCH (09:48)
[2020-12-01] MEDS: Multivit, Therapeutic 1 TAB PO SCH (09:57)
[2020-12-01] MEDS: Amlodipine 10 MG TAB PO SCH (09:57)
[2020-12-01] MEDS: Lisinopril 20 MG TAB PO SCH (09:58)
[2020-12-01] MEDS: Montelukast Sodium 10 mg Tablet PO SCH (09:58)
[2020-12-01 13:17] LABS: SARS-CoV-2 PCR by NAA Not Detected (NotDetected)
[2020-12-01] MEDS ORDERED: Aspirin 81 mg Enteric Coated Tablet PO SCH (15:45)
[2020-12-01] MEDS: Atorvastatin Calcium 40 MG TAB PO SCH (21:40)
[2020-12-01] MEDS: Donepezil HCl 10 MG TAB PO SCH (21:40)
[2020-12-02] MEDS: Sodium Chloride 0.9% 1,000 ML IV SCH ×3 (02:30→16:58)
[2020-12-02] MEDS: Levothyroxine Sodium 25 MCG TAB PO SCH (06:16)
[2020-12-02] MEDS: Montelukast Sodium 10 mg Tablet PO SCH (10:13)
[2020-12-02] MEDS: Amlodipine 10 MG TAB PO SCH (10:13)
[2020-12-02] MEDS: Lisinopril 20 MG TAB PO SCH (10:13)
[2020-12-02] MEDS: Famotidine 20 MG TAB PO SCH ×2 (10:14→22:57)
[2020-12-02] MEDS: Aspirin 81 mg Enteric Coated Tablet PO SCH (10:14)
[2020-12-02] MEDS: Multivit, Therapeutic 1 TAB PO SCH (10:14)
[2020-12-02] MEDS: Enoxaparin Sodium 30 MG/0.3 ML SYRINGE SC SCH (10:43)
[2020-12-02] MEDS ORDERED: Clopidogrel Bisulfate 75 MG TAB PO SCH ×2 (14:33→17:00)
[2020-12-02] MEDS: Lorazepam 2 MG/ML VIAL SLOW IVP PRN (16:58)
[2020-12-02 18:57] LABS: Anion Gap 12 mmol/L (10-20); BUN (Urea Nitrogen) 10 mg/dL (8.4-25.7); Calc. Creatinine Clearance 94 mL/min (70-130); Calcium 8.3 mg/dL (7.8-10.44); Carbon Dioxide 23 mmol/L (23-31); Chloride 105 mmol/L (98-107); Glucose 70 mg/dL (80-115); Sodium 137 mmol/L (136-145)
[2020-12-02] MEDS ORDERED: Potassium Chloride 20 MEQ TAB PO SCH (20:30)
[2020-12-02 21:16] LABS: #Eosinphils 0.2 thou/uL (0.0-0.7); #Lymphocytes 2.1 thou/uL (1.20-3.40); #Monocytes 0.7 thou/uL (0.11-0.59); #Neutrophils 4.7 thou/uL (1.40-6.50); %Basophils 0.4 % (0.0-1.0); %Eosinophils 2.9 % (0.0-10.0); %Lymphocytes 27.4 % (21.0-51.0); %Monocytes 9.2 % (0.0-10.0); Hemoglobin 13.1 g/dL (14.0-18.0); Mean Corpuscular HGB CONC 33.2 g/dL (32.0-36.0); Mean Corpuscular Hemoglobin 29.6 pg (27.0-31.0); Mean Platelet Volume 7.1 fL (7.4-10.4); Platelet Count 183 thou/uL (130-400); RBC Distribution Width 12.6 % (11.5-14.5); Red Blood Cell (RBC) Count 4.44 mill/uL (4.70-6.10); White Blood Cell (WBC) Count 7.8 thou/uL (4.8-10.8)
[2020-12-02 21:30] LABS: Lactic Acid 0.9 mmol/L (0.5-2.2)
[2020-12-02] MEDS ORDERED: MEROPENEM 1 GM/50 ML 1 GM in Premix Bag 1 BAG IVPB SCH (22:00)
[2020-12-02] MEDS ORDERED: Meropenem 1 GM in Sodium Chloride 0.9% 100 ML IVPB SCH (22:00)
[2020-12-02] MEDS: Atorvastatin Calcium 40 MG TAB PO SCH (22:57)
[2020-12-02] MEDS: Donepezil HCl 10 MG TAB PO SCH (22:57)
[2020-12-02] MEDS: Potassium Chloride 20 MEQ in Premix Bag 1 BAG IVPB SCH (22:58)
[2020-12-02] MEDS: metroNIDAZOLE 500 MG in Premix Bag 1 BAG IVPB SCH (23:20)
[2020-12-03] MEDS: Potassium Chloride 20 MEQ in Premix Bag 1 BAG IVPB SCH (00:59)
[2020-12-03] MEDS ORDERED: MEROPENEM 1 GM/50 ML 1 GM in Premix Bag 1 BAG IVPB SCH ×3 (01:00→09:00)
[2020-12-03] MEDS ORDERED: Potassium Chloride 20 MEQ in Premix Bag 1 BAG IVPB SCH (01:00)
[2020-12-03] MEDS: metroNIDAZOLE 500 MG in Premix Bag 1 BAG IVPB SCH ×3 (05:03→22:06)
[2020-12-03] MEDS: Sodium Chloride 0.9% 1,000 ML IV SCH ×4 (05:03→21:18)
[2020-12-03] MEDS: Levothyroxine Sodium 25 MCG TAB PO SCH (07:42)
[2020-12-03] MEDS: Amlodipine 10 MG TAB PO SCH (09:19)
[2020-12-03] MEDS: Montelukast Sodium 10 mg Tablet PO SCH (09:19)
[2020-12-03] MEDS: Aspirin 81 mg Enteric Coated Tablet PO SCH (09:19)
[2020-12-03] MEDS: Famotidine 20 MG TAB PO SCH ×2 (09:19→22:06)
[2020-12-03] MEDS: Lisinopril 20 MG TAB PO SCH (09:19)
[2020-12-03] MEDS: Multivit, Therapeutic 1 TAB PO SCH (09:19)
[2020-12-03] MEDS: Clopidogrel Bisulfate 75 MG TAB PO SCH (09:19)
[2020-12-03] MEDS: Enoxaparin Sodium 30 MG/0.3 ML SYRINGE SC SCH (09:20)
[2020-12-03 10:29] LABS: Anion Gap 14 mmol/L (10-20); BUN (Urea Nitrogen) 9 mg/dL (8.4-25.7); Calc. Creatinine Clearance 98 mL/min (70-130); Calcium 9.1 mg/dL (7.8-10.44); Carbon Dioxide 23 mmol/L (23-31); Chloride 103 mmol/L (98-107); Glucose 81 mg/dL (80-115); Potassium 3.6 mmol/L (3.5-5.1); Sodium 136 mmol/L (136-145)
[2020-12-03] MEDS ORDERED: levETIRAcetam in NS 1,000 MG in Premix Bag 1 BAG IVPB SCH (17:00)
[2020-12-03] MEDS: Nystatin 500,000 UNITS/5 ML UDCUP SSW SCH ×3 (17:17→22:06)
[2020-12-03] MEDS: levETIRAcetam in NS 1,000 MG in Premix Bag 1 BAG IVPB SCH (21:21)
[2020-12-03] MEDS: Donepezil HCl 10 MG TAB PO SCH (22:06)
[2020-12-03] MEDS: Atorvastatin Calcium 40 MG TAB PO SCH (22:06)
[2020-12-04] MEDS: Lorazepam 2 MG/ML VIAL SLOW IVP PRN (02:20)
[2020-12-04] MEDS ORDERED: levETIRAcetam in NS 500 MG in Premix Bag 1 BAG IVPB SCH (02:30)
[2020-12-04] MEDS: metroNIDAZOLE 500 MG in Premix Bag 1 BAG IVPB SCH (05:45)
[2020-12-04] MEDS: Levothyroxine Sodium 25 MCG TAB PO SCH (05:46)
[2020-12-04 06:42] LABS: Anion Gap 16 mmol/L (10-20); BUN (Urea Nitrogen) 9 mg/dL (8.4-25.7); CK (CPK) 1824 U/L (30-200); Calc. Creatinine Clearance 95 mL/min (70-130); Calcium 8.5 mg/dL (7.8-10.44); Carbon Dioxide 20 mmol/L (23-31); Chloride 104 mmol/L (98-107); Glucose 85 mg/dL (80-115); Magnesium 1.5 mg/dL (1.6-2.6); Phosphorus 2.6 mg/dL (2.3-4.7); Potassium 3.8 mmol/L (3.5-5.1); Sodium 136 mmol/L (136-145)
[2020-12-04] MEDS: Sodium Chloride 0.9% 1,000 ML IV SCH ×2 (07:37→17:49)
[2020-12-04] MEDS ORDERED: Magnesium 2 GM/50 ML 2 GM in Premix Bag 1 BAG IVPB SCH (09:15)
[2020-12-04] MEDS: Amlodipine 10 MG TAB PO SCH (10:13)
[2020-12-04] MEDS: Famotidine 20 MG TAB PO SCH ×2 (10:13→21:30)
[2020-12-04] MEDS: Aspirin 81 mg Enteric Coated Tablet PO SCH (10:13)
[2020-12-04] MEDS: Montelukast Sodium 10 mg Tablet PO SCH (10:13)
[2020-12-04] MEDS: levETIRAcetam in NS 1,000 MG in Premix Bag 1 BAG IVPB SCH ×2 (10:14→21:23)
[2020-12-04] MEDS: Multivit, Therapeutic 1 TAB PO SCH (10:14)
[2020-12-04] MEDS: Nystatin 500,000 UNITS/5 ML UDCUP SSW SCH ×4 (10:14→21:30)
[2020-12-04] MEDS: Lisinopril 20 MG TAB PO SCH (10:14)
[2020-12-04] MEDS: Clopidogrel Bisulfate 75 MG TAB PO SCH (10:14)
[2020-12-04] MEDS: Enoxaparin Sodium 30 MG/0.3 ML SYRINGE SC SCH (10:14)
[2020-12-04] MEDS: Donepezil HCl 10 MG TAB PO SCH (21:30)
[2020-12-04] MEDS: Atorvastatin Calcium 40 MG TAB PO SCH (21:30)
[2020-12-05] MEDS: Sodium Chloride 0.9% 1,000 ML IV SCH ×5 (01:32→22:59)
[2020-12-05] MEDS: Levothyroxine Sodium 25 MCG TAB PO SCH (05:44)
[2020-12-05 07:14] LABS: Anion Gap 18 mmol/L (10-20); BUN (Urea Nitrogen) 8 mg/dL (8.4-25.7); CK (CPK) 1477 U/L (30-200); Calc. Creatinine Clearance 98 mL/min (70-130); Calcium 8.7 mg/dL (7.8-10.44); Carbon Dioxide 20 mmol/L (23-31); Chloride 102 mmol/L (98-107); Glucose 81 mg/dL (80-115); Magnesium 1.6 mg/dL (1.6-2.6); Potassium 3.5 mmol/L (3.5-5.1); Sodium 136 mmol/L (136-145)
[2020-12-05] MEDS: Multivit, Therapeutic 1 TAB PO SCH (09:30)
[2020-12-05] MEDS: Famotidine 20 MG TAB PO SCH (09:30)
[2020-12-05] MEDS: Aspirin 81 mg Enteric Coated Tablet PO SCH (09:30)
[2020-12-05] MEDS: Amlodipine 10 MG TAB PO SCH (09:30)
[2020-12-05] MEDS: Nystatin 500,000 UNITS/5 ML UDCUP SSW SCH ×4 (09:30→21:12)
[2020-12-05] MEDS: Montelukast Sodium 10 mg Tablet PO SCH (09:33)
[2020-12-05] MEDS: Enoxaparin Sodium 30 MG/0.3 ML SYRINGE SC SCH (09:33)
[2020-12-05] MEDS: Clopidogrel Bisulfate 75 MG TAB PO SCH (09:33)
[2020-12-05] MEDS: Lisinopril 20 MG TAB PO SCH (09:33)
[2020-12-05] MEDS: levETIRAcetam in NS 1,000 MG in Premix Bag 1 BAG IVPB SCH (09:59)
[2020-12-05] MEDS ORDERED: Magnesium 2 GM/50 ML 2 GM in Premix Bag 1 BAG IVPB SCH (10:00)
[2020-12-05] MEDS: Lacosamide 200 MG in Sodium Chloride 0.9% 50 ML IVPB SCH (14:50)
[2020-12-05] MEDS ORDERED: Lacosamide 200 MG in Sodium Chloride 0.9% 50 ML IVPB SCH (21:00)
[2020-12-05] MEDS: levETIRAcetam in NS 1,500 MG in Premix Bag 1 BAG IVPB SCH (21:11)
[2020-12-05] MEDS: Donepezil HCl 10 MG TAB PO SCH (21:12)
[2020-12-05] MEDS: Atorvastatin Calcium 40 MG TAB PO SCH (21:12)
[2020-12-06] MEDS: Lacosamide 200 MG in Sodium Chloride 0.9% 50 ML IVPB SCH ×2 (02:31→12:40)
[2020-12-06] MEDS: Lorazepam 2 MG/ML VIAL SLOW IVP PRN (05:37)
[2020-12-06] MEDS: Sodium Chloride 0.9% 1,000 ML IV SCH ×3 (06:11→22:12)
[2020-12-06] MEDS: Levothyroxine Sodium 25 MCG TAB PO SCH (08:05)
[2020-12-06 09:55] LABS: #Eosinphils 0.3 thou/uL (0.0-0.7); #Lymphocytes 1.5 thou/uL (1.20-3.40); #Neutrophils 4.2 thou/uL (1.40-6.50); %Basophils 0.4 % (0.0-1.0); %Eosinophils 4.5 % (0.0-10.0); %Lymphocytes 20.9 % (21.0-51.0); %Monocytes 14.8 % (0.0-10.0); %Neutrophils 59.4 % (42.0-75.0); Hemoglobin 14.2 g/dL (14.0-18.0); Mean Corpuscular HGB CONC 31.6 g/dL (32.0-36.0); Mean Corpuscular Hemoglobin 27.9 pg (27.0-31.0); Mean Corpuscular Volume 88.1 fL (78.0-98.0); Mean Platelet Volume 7.4 fL (7.4-10.4); Platelet Count 182 thou/uL (130-400); RBC Distribution Width 12.5 % (11.5-14.5); Red Blood Cell (RBC) Count 5.08 mill/uL (4.70-6.10)
[2020-12-06 10:15] LABS: ALT (SGPT) 55 U/L (8-55); AST (SGOT) 110 U/L (5-34); Albumin 3.4 g/dL (3.4-4.8); Alkaline Phosphatase 47 U/L (40-110); Anion Gap 14 mmol/L (10-20); BUN (Urea Nitrogen) 7 mg/dL (8.4-25.7); Bilirubin, Total 0.5 mg/dL (0.2-1.2); Calc. Creatinine Clearance 101 mL/min (70-130); Calcium 8.9 mg/dL (7.8-10.44); Carbon Dioxide 25 mmol/L (23-31); Chloride 103 mmol/L (98-107); Globulin 4.1 g/dL (2.4-3.5); Glucose 76 mg/dL (80-115); Magnesium 1.7 mg/dL (1.6-2.6); Potassium 3.4 mmol/L (3.5-5.1); Protein, Total 7.5 g/dL (5.8-8.1); Sodium 139 mmol/L (136-145)
[2020-12-06] MEDS: Montelukast Sodium 10 mg Tablet PO SCH (10:17)
[2020-12-06] MEDS: Lisinopril 20 MG TAB PO SCH (10:17)
[2020-12-06] MEDS: Clopidogrel Bisulfate 75 MG TAB PO SCH (10:17)
[2020-12-06] MEDS: Enoxaparin Sodium 30 MG/0.3 ML SYRINGE SC SCH (10:18)
[2020-12-06] MEDS: Multivit, Therapeutic 1 TAB PO SCH (10:18)
[2020-12-06] MEDS: Amlodipine 10 MG TAB PO SCH (10:18)
[2020-12-06] MEDS: Aspirin 81 mg Enteric Coated Tablet PO SCH (10:18)
[2020-12-06] MEDS: Nystatin 500,000 UNITS/5 ML UDCUP SSW SCH ×4 (10:19→22:11)
[2020-12-06] MEDS: levETIRAcetam in NS 1,500 MG in Premix Bag 1 BAG IVPB SCH ×2 (10:19→22:07)
[2020-12-06] MEDS ORDERED: Lorazepam 2 MG/ML VIAL SLOW IVP PRN (10:52)
[2020-12-06] MEDS ORDERED: Lorazepam 2 MG/ML VIAL SLOW IVP SCH (11:00)
[2020-12-06] MEDS: Atorvastatin Calcium 40 MG TAB PO SCH (21:56)
[2020-12-06] MEDS: Donepezil HCl 10 MG TAB PO SCH (21:56)
[2020-12-06] MEDS ORDERED: Phenytoin 50 MG Chewable Tablet PO SCH (22:00)
[2020-12-06] MEDS: Fosphenytoin Sodium 100 MG in Sodium Chloride 0.9% 50 ML IVPB SCH (22:02)
[2020-12-07] MEDS: Lacosamide 200 MG in Sodium Chloride 0.9% 50 ML IVPB SCH ×2 (03:01→14:38)
[2020-12-07] MEDS: Sodium Chloride 0.9% 1,000 ML IV SCH ×3 (03:13→21:50)
[2020-12-07] MEDS: Fosphenytoin Sodium 100 MG in Sodium Chloride 0.9% 50 ML IVPB SCH ×3 (04:49→21:52)
[2020-12-07] MEDS: Levothyroxine Sodium 25 MCG TAB PO SCH (05:42)
[2020-12-07 06:53] LABS: Anion Gap 17 mmol/L (10-20); BUN (Urea Nitrogen) 9 mg/dL (8.4-25.7); Calc. Creatinine Clearance 97 mL/min (70-130); Calcium 8.6 mg/dL (7.8-10.44); Carbon Dioxide 22 mmol/L (23-31); Chloride 103 mmol/L (98-107); Glucose 70 mg/dL (80-115); Magnesium 1.5 mg/dL (1.6-2.6); Potassium 3.5 mmol/L (3.5-5.1); Sodium 138 mmol/L (136-145)
[2020-12-07] MEDS ORDERED: Magnesium 2 GM/50 ML 2 GM in Premix Bag 1 BAG IVPB SCH (08:15)
[2020-12-07] MEDS ORDERED: Magnesium Sulfate 2 GM in Sodium Chloride 0.9% 100 ML IVPB SCH (08:15)
[2020-12-07] MEDS: Aspirin 81 mg Enteric Coated Tablet PO SCH (09:22)
[2020-12-07] MEDS: Clopidogrel Bisulfate 75 MG TAB PO SCH (09:22)
[2020-12-07] MEDS: Amlodipine 10 MG TAB PO SCH (09:22)
[2020-12-07] MEDS: Lisinopril 20 MG TAB PO SCH (09:22)
[2020-12-07] MEDS: Nystatin 500,000 UNITS/5 ML UDCUP SSW SCH ×4 (09:23→21:52)
[2020-12-07] MEDS: Multivit, Therapeutic 1 TAB PO SCH (09:23)
[2020-12-07] MEDS: Montelukast Sodium 10 mg Tablet PO SCH (09:23)
[2020-12-07] MEDS: levETIRAcetam in NS 1,500 MG in Premix Bag 1 BAG IVPB SCH ×2 (09:29→21:53)
[2020-12-07] MEDS: Enoxaparin Sodium 30 MG/0.3 ML SYRINGE SC SCH (09:29)
[2020-12-07] MEDS: Atorvastatin Calcium 40 MG TAB PO SCH (21:52)
[2020-12-07] MEDS: Donepezil HCl 10 MG TAB PO SCH (21:52)
[2020-12-08] MEDS: Fosphenytoin Sodium 100 MG in Sodium Chloride 0.9% 50 ML IVPB SCH ×3 (03:07→20:02)
[2020-12-08] MEDS: Lacosamide 200 MG in Sodium Chloride 0.9% 50 ML IVPB SCH ×2 (03:24→14:31)
[2020-12-08 05:40] LABS: #Basophils 0.1 thou/uL (0.0-0.2); #Eosinphils 0.3 thou/uL (0.0-0.7); #Lymphocytes 1.5 thou/uL (1.20-3.40); #Monocytes 0.5 thou/uL (0.11-0.59); %Basophils 1.3 % (0.0-1.0); %Eosinophils 5.9 % (0.0-10.0); %Lymphocytes 27.3 % (21.0-51.0); %Monocytes 9.9 % (0.0-10.0); %Neutrophils 55.7 % (42.0-75.0); Hemoglobin 12.7 g/dL (14.0-18.0); Mean Corpuscular HGB CONC 32.8 g/dL (32.0-36.0); Mean Corpuscular Hemoglobin 28.9 pg (27.0-31.0); Mean Corpuscular Volume 88.1 fL (78.0-98.0); Mean Platelet Volume 7.3 fL (7.4-10.4); Platelet Count 208 thou/uL (130-400); RBC Distribution Width 12.3 % (11.5-14.5); White Blood Cell (WBC) Count 5.4 thou/uL (4.8-10.8)
[2020-12-08] MEDS: Levothyroxine Sodium 25 MCG TAB PO SCH (06:08)
[2020-12-08 06:14] LABS: Anion Gap 13 mmol/L (10-20); BUN (Urea Nitrogen) 6 mg/dL (8.4-25.7); Calc. Creatinine Clearance 96 mL/min (70-130); Calcium 8.7 mg/dL (7.8-10.44); Carbon Dioxide 25 mmol/L (23-31); Chloride 105 mmol/L (98-107); Glucose 85 mg/dL (80-115); Magnesium 1.7 mg/dL (1.6-2.6); Potassium 3.4 mmol/L (3.5-5.1); Sodium 140 mmol/L (136-145)
[2020-12-08] MEDS: Sodium Chloride 0.9% 1,000 ML IV SCH ×2 (06:43→08:54)
[2020-12-08] MEDS: Enoxaparin Sodium 40 MG/0.4 ML SYRINGE SC SCH (08:54)
[2020-12-08] MEDS: levETIRAcetam in NS 1,500 MG in Premix Bag 1 BAG IVPB SCH ×2 (08:54→21:24)
[2020-12-08] MEDS: Aspirin 81 mg Enteric Coated Tablet PO SCH (08:55)
[2020-12-08] MEDS: Montelukast Sodium 10 mg Tablet PO SCH (08:55)
[2020-12-08] MEDS: Lisinopril 20 MG TAB PO SCH (08:55)
[2020-12-08] MEDS: Amlodipine 10 MG TAB PO SCH (08:56)
[2020-12-08] MEDS: Clopidogrel Bisulfate 75 MG TAB PO SCH (08:56)
[2020-12-08] MEDS: Nystatin 500,000 UNITS/5 ML UDCUP SSW SCH ×4 (09:16→20:03)
[2020-12-08] MEDS: Multivit, Therapeutic 1 TAB PO SCH (12:34)
[2020-12-08] MEDS: Lorazepam 2 MG/ML VIAL SLOW IVP PRN (18:02)
[2020-12-08] MEDS: Atorvastatin Calcium 40 MG TAB PO SCH (20:02)
[2020-12-08] MEDS: Donepezil HCl 10 MG TAB PO SCH (20:02)
[2020-12-08 22:05] LABS: SARS-CoV-2 PCR by NAA Not Detected (NotDetected)
[2020-12-09] MEDS: Lacosamide 200 MG in Sodium Chloride 0.9% 50 ML IVPB SCH ×2 (02:57→13:20)
[2020-12-09] MEDS: Fosphenytoin Sodium 100 MG in Sodium Chloride 0.9% 50 ML IVPB SCH ×3 (03:32→19:34)
[2020-12-09 07:33] LABS: Anion Gap 11 mmol/L (10-20); BUN (Urea Nitrogen) 8 mg/dL (8.4-25.7); Calc. Creatinine Clearance 87 mL/min (70-130); Calcium 9.2 mg/dL (7.8-10.44); Carbon Dioxide 30 mmol/L (23-31); Chloride 103 mmol/L (98-107); Glucose 103 mg/dL (80-115); Magnesium 1.6 mg/dL (1.6-2.6); Phosphorus 3.6 mg/dL (2.3-4.7); Potassium 3.3 mmol/L (3.5-5.1); Sodium 141 mmol/L (136-145)
[2020-12-09] MEDS: Aspirin 81 mg Enteric Coated Tablet PO SCH (08:19)
[2020-12-09] MEDS: Levothyroxine Sodium 25 MCG TAB PO SCH (08:19)
[2020-12-09] MEDS: Lisinopril 20 MG TAB PO SCH (08:19)
[2020-12-09] MEDS: Clopidogrel Bisulfate 75 MG TAB PO SCH (08:19)
[2020-12-09] MEDS: Montelukast Sodium 10 mg Tablet PO SCH (08:20)
[2020-12-09] MEDS: Multivit, Therapeutic 1 TAB PO SCH (08:20)
[2020-12-09] MEDS: Amlodipine 10 MG TAB PO SCH (08:20)
[2020-12-09] MEDS: Enoxaparin Sodium 40 MG/0.4 ML SYRINGE SC SCH (08:25)
[2020-12-09] MEDS: levETIRAcetam in NS 1,500 MG in Premix Bag 1 BAG IVPB SCH ×2 (08:33→21:05)
[2020-12-09] MEDS: Nystatin 500,000 UNITS/5 ML UDCUP SSW SCH ×4 (08:33→19:44)
[2020-12-09] MEDS ORDERED: Magnesium 2 GM/50 ML 2 GM in Premix Bag 1 BAG IVPB SCH (14:00)
[2020-12-09] MEDS: Potassium Chloride 20 MEQ TAB PO SCH (16:30)
[2020-12-09] MEDS: Atorvastatin Calcium 40 MG TAB PO SCH (19:44)
[2020-12-09] MEDS: Donepezil HCl 10 MG TAB PO SCH (19:44)
[2020-12-10] MEDS ORDERED: Lorazepam 2 MG/ML VIAL SLOW IVP SCH (00:30)
[2020-12-10] MEDS: Lacosamide 200 MG in Sodium Chloride 0.9% 50 ML IVPB SCH (03:44)
[2020-12-10 06:02] LABS: #Eosinphils 0.3 thou/uL (0.0-0.7); #Lymphocytes 1.7 thou/uL (1.20-3.40); #Monocytes 0.5 thou/uL (0.11-0.59); #Neutrophils 3.1 thou/uL (1.40-6.50); %Basophils 0.4 % (0.0-1.0); %Eosinophils 5.2 % (0.0-10.0); %Lymphocytes 29.3 % (21.0-51.0); %Monocytes 9.4 % (0.0-10.0); %Neutrophils 55.7 % (42.0-75.0); Hemoglobin 11.6 g/dL (14.0-18.0); Mean Corpuscular HGB CONC 30.7 g/dL (32.0-36.0); Mean Corpuscular Hemoglobin 27.5 pg (27.0-31.0); Mean Corpuscular Volume 89.5 fL (78.0-98.0); Mean Platelet Volume 7.4 fL (7.4-10.4); Platelet Count 230 thou/uL (130-400); RBC Distribution Width 12.4 % (11.5-14.5); Red Blood Cell (RBC) Count 4.22 mill/uL (4.70-6.10); White Blood Cell (WBC) Count 5.6 thou/uL (4.8-10.8)
[2020-12-10] MEDS: Fosphenytoin Sodium 100 MG in Sodium Chloride 0.9% 50 ML IVPB SCH ×2 (06:46→13:24)
[2020-12-10] MEDS: Levothyroxine Sodium 25 MCG TAB PO SCH (08:43)
[2020-12-10] MEDS: Amlodipine 10 MG TAB PO SCH (09:55)
[2020-12-10] MEDS: Potassium Chloride 20 MEQ TAB PO SCH ×2 (09:55→16:27)
[2020-12-10] MEDS: Aspirin 81 mg Enteric Coated Tablet PO SCH (09:56)
[2020-12-10] MEDS: Enoxaparin Sodium 40 MG/0.4 ML SYRINGE SC SCH (09:56)
[2020-12-10] MEDS: levETIRAcetam in NS 1,500 MG in Premix Bag 1 BAG IVPB SCH (09:56)
[2020-12-10] MEDS: Lisinopril 20 MG TAB PO SCH (09:56)
[2020-12-10] MEDS: Clopidogrel Bisulfate 75 MG TAB PO SCH (09:56)
[2020-12-10] MEDS: Multivit, Therapeutic 1 TAB PO SCH (09:57)
[2020-12-10] MEDS: Nystatin 500,000 UNITS/5 ML UDCUP SSW SCH ×3 (09:57→16:27)
[2020-12-10] MEDS: Montelukast Sodium 10 mg Tablet PO SCH (09:57)
[2020-12-10 16:35] VITALS: BP 134/81; TEMP 97.9
[2020-12-10] MEDS ORDERED: levETIRAcetam 500 MG TAB PO SCH (21:00)
[2020-12-10] MEDS ORDERED: Lacosamide 50 mg Tablet PO SCH (21:00)
== END 2020-12-10 18:35 | DRG 64 ==
LOC: ERS 08:24 → 3SE 10:34
PROVIDERS: ADMIT Internal Medicine; ATTEND Internal Medicine
DX: I63.9 Cerebral infarction, unspecified (principal); G93.41 Metabolic encephalopathy; J18.9 Pneumonia, unspecified organism; Z20.822 Contact with and (suspected) exposure to COVID-19; G81.94 Hemiplegia, unspecified affecting left nondominant side; M62.82 Rhabdomyolysis; N17.9 Acute kidney failure, unspecified; G40.909 Epilepsy, unspecified, not intractable, without status epilepticus; R47.01 Aphasia; R29.715 NIHSS score 15; N18.9 Chronic kidney disease, unspecified; R79.89 Other specified abnormal findings of blood chemistry; G83.84 Todd's paralysis (postepileptic); F03.90 Unspecified dementia, unspecified severity, without behavioral disturbance, psychotic disturbance, mood disturbance, and anxiety; E03.9 Hypothyroidism, unspecified; I12.9 Hypertensive chronic kidney disease with stage 1 through stage 4 chronic kidney disease, or unspecified chronic kidney disease; F31.9 Bipolar disorder, unspecified; F17.210 Nicotine dependence, cigarettes, uncomplicated; F10.10 Alcohol abuse, uncomplicated; E83.42 Hypomagnesemia; Z79.890 Hormone replacement therapy; Z79.899 Other long term (current) drug therapy; Z88.0 Allergy status to penicillin; Z91.19 Patient's noncompliance with other medical treatment and regimen
CPT/HCPCS: 36415; 36416; 70450; 70496; 70498; 70551; 71045; 80048; 80053; 80185; 80307; 82550; 82553; 83605; 83735; 84100; 84145; 84146; 84443; 84484; 85025; 85610; 85730; 87040; 93005; 93306; 94760; 95715; 95816; 95819; 95957; C9254; J1650; J1953; J1956; J2060; J2185; J3475; J3480; J3490; J7050; Q2009; Q9967; U0003; U0005

== ENCOUNTER 2022-03-13 09:56 | Outpatient (CLI) | payer MEDICARE, OTHER | END 2022-03-13 09:57 | disposition home or self-care (01) | LOC: NM 09:56 | PROVIDERS: ATTEND Psychiatry & Neurology Neurology | DX: G40.909 Epilepsy, unspecified, not intractable, without status epilepticus (principal) | CPT/HCPCS: 78803; A9584 ×2 ==

== ENCOUNTER 2023-04-07 08:07 | Emergency (ER) | payer MEDICARE, MEDICAID ==
[2023-04-07] MEDS ORDERED: levETIRAcetam 500 MG (5 mL) VIAL ONE (08:14)
[2023-04-07] MEDS ORDERED: LORazepam 2 MG/ML SYR.(CARPUJECT) ONE ×2 (08:15→08:30)
[2023-04-07] MEDS ORDERED: Thiamine HCl 200 MG/2 ML VIAL ONE (08:25)
[2023-04-07 09:17] LABS: ALT (SGPT) 35 U/L (8-55); AST (SGOT) 61 U/L (5-34); Albumin 3.5 g/dL (3.4-4.8); Alkaline Phosphatase 79 U/L (40-110); Anion Gap 15 mmol/L (10-20); BUN (Urea Nitrogen) 14 mg/dL (8.4-25.7); Bilirubin, Total 0.4 mg/dL (0.2-1.2); Calc. Creatinine Clearance 0 mL/min (70-130); Calcium 8.7 mg/dL (7.8-10.44); Carbon Dioxide 16 mmol/L (23-31); Chloride 108 mmol/L (98-107); Estimated GFR 78; Globulin 4.4 g/dL (2.4-3.5); Glucose 88 mg/dL (80-115); Potassium 3.9 mmol/L (3.5-5.1); Protein, Total 7.9 g/dL (5.8-8.1); Sodium 135 mmol/L (136-145)
[2023-04-07 09:30] LABS: #Eosinphils 0.1 thou/uL (0.0-0.7); #Monocytes 0.3 thou/uL (0.11-0.59); #Neutrophils 2.3 thou/uL (1.40-6.50); %Basophils 0.3 % (0.0-1.0); %Eosinophils 1.6 % (0.0-10.0); %Lymphocytes 15.5 % (21.0-51.0); %Monocytes 10.6 % (0.0-10.0); Hematocrit 34.8 % (42.0-52.0); Hemoglobin 10.9 g/dL (14.0-18.0); Mean Corpuscular HGB CONC 31.3 g/dL (32.0-36.0); Mean Corpuscular Volume 89.5 fl (78.0-98.0); Mean Platelet Volume 9.6 fL (7.4-10.4); Platelet Count 140 10x3/uL (130-400); RBC Distribution Width 13.2 % (11.5-14.5); Red Blood Cell (RBC) Count 3.89 mill/uL (4.70-6.10); White Blood Cell (WBC) Count 3.2 10x3/uL (4.8-10.8)
[2023-04-07 09:37] LABS: Acetaminophen Less than 10 mcg/mL (10.0-30.0); Alcohol Less than 10.0 mg/dL (Less than 10); Magnesium 1.7 mg/dL (1.6-2.6); Salicylate Less than 8.0 mg/dL (15.0-30.0)
== END 2023-04-07 23:28 | disposition home or self-care (01) ==
LOC: ERS 08:07
DX: G40.909 Epilepsy, unspecified, not intractable, without status epilepticus (principal); E03.9 Hypothyroidism, unspecified; R41.82 Altered mental status, unspecified; I10 Essential (primary) hypertension; F17.210 Nicotine dependence, cigarettes, uncomplicated; Z55.6 Problems related to health literacy; Z79.82 Long term (current) use of aspirin; Z79.899 Other long term (current) drug therapy
CPT/HCPCS: 70450; 71045; 80053; 80307; 83735; 84146; 84484; 85025; 96365; 96375; 99285; J1953; J2060; 36415; J3411